=== PATIENT | male | born 1955 | race Caucasian/White ===

== ENCOUNTER 2017-05-01 11:26 | Emergency (ER) | payer MEDICARE, BC ==
--- NOTE | 2017-05-01 14:42 | EDM.PDOC ---
ED HPI GENERAL MEDICAL PROBLEM - General Chief Complaint: General Stated Complaint: BLOOD BLISTERS IN MOUTH Time Seen by Provider: 05/01/17 11:45 Source of Information: Reports: Patient, Provider History Limitations: Reports: No Limitations - History of Present Illness INITIAL COMMENTS - FREE TEXT/NARRATIVE: Patient is a 61 year old man with Chronic Lymphocytic Leukemia who was started on Imbruvica 2 days ago. He started have bleeding sores in his mouth last night and this am and he has a petechial rash on his left upper extremity this late morning also. He is not actively bleeding at this time. He feels good otherwise. Onset: Gradual Onset Date: 04/30/17 Onset Time: 20:00 Duration: Day(s): (1) Location: Reports: Generalized Quality: Reports: Same as Previous Episode Severity: Mild Improves with: Reports: Immobilization Worsens with: Reports: None Context: Reports: Other (History or CLL and chemotherapy.) Associated Symptoms: Reports: No Other Symptoms - Related Data Allergies Allergy/AdvReac Type Severity Reaction Status Date / Time Sulfa (Sulfonamide Allergy Cannot Verified 05/01/17 11:57 Antibiotics) Remember Home Meds: Home Meds Baclofen [Lioresal] 10 mg PO BEDTIME 04/14/13 [History] Ibuprofen [Motrin] 800 mg PO QID PRN 04/14/13 [History] Metoprolol Succinate 25 mg PO DAILY 04/14/13 [History] Simvastatin [Zocor] 40 mg PO BEDTIME 04/14/13 [History] Potassium Chloride 20 meq PO DAILY 08/19/16 [History] traZODone 100 mg PO BEDTIME 08/19/16 [History] Acetaminophen 1,000 mg PO Q6H 05/01/17 [History] Albuterol Sulfate [Proventil Hfa] 2 puff PO Q6H 05/01/17 [History] Ascorbic Acid 500 mg PO DAILY 05/01/17 [History] Cholecalciferol (Vitamin D3) [Vitamin D3] 1,000 unit PO DAILY 05/01/17 [History] Folic Acid 1 mg PO DAILY 05/01/17 [History] Ibrutinib [Imbruvica] 420 mg PO DAILY 05/01/17 [History] Lisinopril 20 mg PO DAILY 05/01/17 [History] Multivit-Min/FA/Lycopene/Lut [Certavite Sr-Antioxidant Tab] 1 tab PO DAILY 05/01 [History] Ondansetron [Zofran] 8 mg PO BID 05/01/17 [History] PARoxetine [Paxil] 20 mg PO DAILY 05/01/17 [History] Umeclidinium [place] [Incruse Ellipta*] 1 inh PO DAILY 05/01/17 [History] Past Medical History HEENT History: Reports: Hard of Hearing, Impaired Vision Cardiovascular History: Reports: High Cholesterol, Hypertension Other Musculoskeletal History: tailbone cyst Psychiatric History: Reports: Depression Oncologic (Cancer) History: Reports: Leukemia - Past Surgical History GI Surgical History: Reports: Appendectomy Musculoskeletal Surgical History: Reports: Shoulder Surgery, Other (See Below) Other Musculoskeletal Surgeries/Procedures:: finger surgery Social & Family History - Family History Family Medical History: Noncontributory - Tobacco Use Smoking Status *Q: Current Every Day Smoker Years of Tobacco use: 40 Packs/Tins Daily: 1 Second Hand Smoke Exposure: Yes - Caffeine Use Caffeine Use: Reports: Coffee, Energy Drinks, Soda - Alcohol Use Days Per Week of Alcohol Use: 7 Number of Drinks Per Day: 3 Total Drinks Per Week: 21 - Recreational Drug Use Recreational Drug Use: No ED ROS GENERAL - Review of Systems Review Of Systems: See Below Constitutional: Reports: No Symptoms, Decreased Appetite HEENT: Reports: Other (He has areas of prior bleeding sores that are healing.) Respiratory: Reports: No Symptoms Cardiovascular: Reports: No Symptoms Endocrine: Reports: No Symptoms GI/Abdominal: Reports: No Symptoms : Reports: No Symptoms Musculoskeletal: Reports: No Symptoms Skin: Reports: Rash (Petechial rash on left upper arm.) Neurological: Reports: No Symptoms Psychiatric: Reports: No Symptoms Hematologic/Lymphatic: Reports: No Symptoms Immunologic: Reports: No Symptoms ED EXAM, GENERAL - Physical Exam Exam: Not Obtained Exam Limited By: No Limitations General Appearance: Alert Eye Exam: Bilateral Eye: EOMI, Normal Fundi, Normal Inspection, PERRL Ears: Normal External Exam, Normal Canal, Hearing Grossly Normal, Normal TMs Ear Exam: Bilateral Ear: Auricle Normal, Canal Normal, TM normal Nose: Normal Inspection, Normal Mucosa, No Blood Throat/Mouth: Normal Inspection, Normal Lips, Normal Teeth, Normal Gums, Normal Oropharynx, Normal Voice, No Airway Compromise, Other (There are healing sores with blood in her mouth qne tongue.) Head: Atraumatic, Normocephalic Neck: Normal Inspection, Supple, Non-Tender, Full Range of Motion Respiratory/Chest: No Respiratory Distress GI/Abdominal: Normal Bowel Sounds, Soft, Non-Tender, No Organomegaly, No Distention, No Abnormal Bruit, No Mass (Male) Exam: No Hernia Extremities: Normal Inspection, Normal Range of Motion, Non-Tender, No Pedal Edema, Normal Capillary Refill, Other (Petechial rash left upper arm.) Neurological: Alert, Oriented, CN II-XII Intact, Normal Cognition, Normal Gait, Normal Reflexes, No Motor/Sensory Deficits Psychiatric: Normal Affect, Normal Mood Skin Exam: Warm, Dry, Intact, Normal Color, Rash Lymphatic: No Adenopathy () Course - Vital Signs Text/Narrative:: Uneventful ED course. He will be watched on obervation closely and he will follow up with heme-onc next week as scheduled. Oncology suggested watching him closely in observation and if any bleeding starts to quickly get him moved to [facility] if needed. Stop Imbruvica. Last Recorded V/S: Last Vital Signs Temp 36.9 C 05/01/17 11:30 Pulse 84 05/01/17 11:30 Resp 15 05/01/17 11:30 BP 162/85 H 05/01/17 11:30 Pulse Ox 96 05/01/17 11:30 - Orders/Labs/Meds Orders: Active Orders 24 hr Category Date Time Status Pelvis wo Cont [CT] Stat Exams 05/01/17 11:33 Stop Req Labs: Laboratory Tests 05/01/17 05/01/17 Range/Units 12:10 12:10 WBC 29.7 H (4.5-12.0) X10-3/uL RBC 5.07 (4.30-5.75) x10(6)uL Hgb 13.8 (11.5-15.5) g/dL Hct 42.0 (30.0-51.3) % MCV 82.9 (80-96) fL MCH 27.2 L (27.7-33.6) pg MCHC 32.8 (32.2-35.4) g/dL RDW 15.6 H (11.5-15.5) % Plt Count 21 L* (125-369) X10(3)uL MPV 10.9 H (7.4-10.4) fL Add Manual Diff Yes Neutrophils % (Manual) 26 L (46-82) % Lymphocytes % (Manual) 73 H (13-37) % Monocytes % (Manual) 1 L (4-12) % Plt Morphology Comment Sodium 141 (135-145) mmol/L Potassium 4.2 (3.5-5.3) mmol/L Chloride 105 (100-110) mmol/L Carbon Dioxide 27 (21-32) mmol/L BUN 12 (7-18) mg/dL Creatinine 0.7 (0.70-1.30) mg/dL Est Cr Clr Drug Dosing 87.32 mL/min Estimated GFR (MDRD) > 60 (>60) BUN/Creatinine Ratio 17.1 (9-20) Glucose 110 (80-116) mg/dL Calcium 9.0 (8.6-10.2) mg/dL Total Bilirubin 0.4 (0.1-1.3) mg/dL AST 13 (5-25) IU/L ALT 16 (12-36) U/L Alkaline Phosphatase 126 H (56-112) IU/L Total Protein 6.7 (6.0-8.0) g/dL Albumin 3.5 (3.2-4.6) g/dL Globulin 3.2 g/dL Albumin/Globulin Ratio 1.1 Departure - Departure Time of Disposition: 14:49 Disposition: Refer to Observation Condition: Fair Clinical Impression: Thrombocytopenia due to blood loss, 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 - Discharge Information Referrals: Vahid Oakes MD [Primary Care Provider] - - My Orders Last 24 Hours: My Active Orders 05/01/17 11:33 Pelvis wo Cont [CT] Stat - Assessment/Plan Last 24 Hours: My Active Orders 05/01/17 11:33 Pelvis wo Cont [CT] Stat
[2017-05-01] MEDS ORDERED: Sodium Chloride 0.9% 10 ML Syringe FLUSH PRN (16:42)
[2017-05-01] MEDS ORDERED: ALBUTEROL SULFATE PO SCH (17:00)
[2017-05-01] MEDS ORDERED: BACLOFEN 10 MG PO SCH (18:00)
[2017-05-01] MEDS ORDERED: UMECLIDINIUM BROMIDE PO SCH (18:00)
[2017-05-01] MEDS: ALBUTEROL SULFATE PO SCH (20:26)
[2017-05-01] MEDS ORDERED: TRAZODONE 50 MG PO SCH (21:00)
[2017-05-02] MEDS: ALBUTEROL SULFATE PO SCH (10:11)
[2017-05-02 10:16] VITALS: BP 151/74
--- NOTE | 2017-05-02 13:00 | DISCH ---
DISCHARGE DATE: 05/02/2017 HOSPITAL COURSE: Ajay Reyes is a 61-year-old male, admitted with post chemotherapy induced low platelets. Intraoral bleeding has ceased, fatigue had not increased, feeling well otherwise. Repeat CBC; white count 29,200, hemoglobin 13.0, platelets have dropped from 40 to 21 on 05/01 to 16,000. Chemotherapy-induced low platelets. PLAN: Spoke with Dr. Ross, Oncology/Hematology [facility], agrees that he is going to observe increasing bleeding symptoms or concerns, problematic return particularly to [facility] given circumstances. CBC will be ordered at [facility] for review of CBC tomorrow. /[id number] ABBY/TRACY
--- NOTE | 2017-05-03 13:55 | HP ---
ADMISSION DATE: 05/01/2017 REASON FOR VISIT: Low platelets, oral bleeding, bruising arms. HISTORY OF PRESENT ILLNESS: Ajay Reyes is a 61-year-old male, , [place] resident, who was seen at [facility]. He has a longstanding history, 9 years' duration, of CLL. Provider of record is Dr. Gregory Roberts, Oncology, [facility]. He has had some intermittent medical treatment with Rituxan over the last several years' duration. Lack of response resulted in institution this last Wednesday of Imbruvica 420 mg daily, adjusting dose upward as tolerated. First dose taken on 04/30/2017. Symptoms appeared in the mean time. Pretreatment platelets by report were "40,000." Was seen at [facility], white count stable 2,900, hemoglobin 13.8, platelets 21,000. ER doctor's record, spoke with Dr. Ross, Oncology/Hematology, [facility], recommended "overnight observation for bleeding." There has been no other bleeding, other than couple of sores in his mouth, some bruising and petechiae on upper extremities, no blood in urine, no blood in stool, feeling otherwise well. MEDICATIONS: Please see med recon list. PAST MEDICAL HISTORY: Significant for operation including appendectomy, bilateral shoulder arthroscopies, pilonidal cystectomy, transposition of the ulnar nerve, and a right thumb tendon surgery. Chronic illnesses include hypertension, mood disorder, hyperlipidemia, and of course ongoing CLL treatment. 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 Allergy to sulfa. history none. SOCIAL HISTORY: . at 53, uncertain of cause. Works in maintenance and construction. He has 3 boys, 6 grandchildren, 2 step grandchildren, 4 biological grandchildren. Continues to smoke 1-2 pack per day. No chewing tobacco. No alcohol consumption. No illicit drug use. FAMILY HISTORY: Negative for early heart disease, diabetes mellitus, or inheritable cancers. REVIEW OF SYSTEMS: CONSTITUTIONAL: Feeling well. Weight has been stable. EYES: Sees well. EARS: Difficulty hearing and deaf in the left ear. Poor hearing in the right. MOUTH AND OROPHARYNX: Intact dentition, oral bleeding. CHEST: No cough, wheeze, or congestion. CARDIOVASCULAR: No chest pain, palpitations or syncope. GI: Regular predictable stools. : Good voiding pattern. SKIN: No open sores or lesions. ENDOCRINE: No excessive thirst or urination. ALLERGY: No chronic cough, wheeze, or congestion. PSYCHIATRIC: Mood stable, on medications. ORTHOPEDICS: Generalized joint complaints. PHYSICAL EXAMINATION: VITAL SIGNS: 37, 88 is the pulse, 170/97, 20 and 97%. GENERAL: Young man, cooperative, conversant. Appears older than stated age. Funduscopic benign. Bright TMs. Clear nasal discharge. Mouth and oropharynx clear. Intraoral bleeding sites, left and right buccal mucosa. No dental bleeding. NECK: Benign. No adenopathy. CHEST: Clear in all lung burden. HEART: Regular without ectopy or murmur. BREASTS: Normal male breasts. ABDOMEN: Benign. Right lower quadrant appendectomy scar, well healed. : Normal male genitalia. RECTAL: Deferred. EXTREMITIES: Well perfused. LABORATORY STUDIES: CBC as noted above, electrolytes satisfactory. ASSESSMENT: Chemotherapy-induced low platelets, underlying chronic lymphocytic leukemia treatment. PLAN: As per request of Dr. Ross, we will watch overnight for bleeding. Intravenous line was placed, just in case, cooperative care and well being. /[id number] ABBY/TRACY CC: GREGORY ROBERTS MD, [facility]
== END 2017-05-02 11:30 | disposition home or self-care (01) ==
LOC: FB.ED 11:26 → UNDOADMOB 15:23 → FB.MS 15:23 → UNDODISOB 05-02 11:30 → FB.ED 05-02 11:30
DX: D69.59 Other secondary thrombocytopenia (principal); I10 Essential (primary) hypertension; E78.5 Hyperlipidemia, unspecified; Z88.2 Allergy status to sulfonamides; F17.210 Nicotine dependence, cigarettes, uncomplicated; Z79.899 Other long term (current) drug therapy
CPT/HCPCS: 36415; 80053; 85025; 85027; 85610; 99283; 99284; A9270; J7050

== ENCOUNTER 2017-08-25 12:56 | Emergency (ER) | payer MEDICARE, BC ==
--- NOTE | 2017-08-25 13:58 | EDM.PDOC ---
ED HPI GENERAL MEDICAL PROBLEM - General Chief Complaint: Respiratory Problem Stated Complaint: COPD Time Seen by Provider: 08/25/17 13:30 Source of Information: Reports: Patient History Limitations: Reports: No Limitations - History of Present Illness INITIAL COMMENTS - FREE TEXT/NARRATIVE: c/o low BP pt with BP 84/54 at clinic, pt sent here for BP recheck prior to be admitted to [facility] by Dr Bernstein pt did not want to be admitted here pt with h/o COPD, last hospitalization several yrs ago dx with pneumonia 6w ago, begun on home O2 yesterday and tx with prednisone 20 mg daily and a 2nd course of antbx pt went to clinic today and saw Dr Luz who made arrangements for pt to be transferred to [facility], Dr Bernstein accepted pt although requested pt to come to closed ED to stable BP first pt with BP 110/62 upon leaving clinic and is 112/85 with PO 95-98% on 2 l/min CxR shows old fibrosis and no new infiltrate as per Dr Luz todays labs show BUN/creat 9/0.91, glu 131, chloride 95, Na 132, CMP otherwise neg WBC 9.5, hgb 13.1, plt 47 still smokes 2 ppd, no nebs at home, has alb HFA and Ellipta HFA has CLL x 10y, gets rifuximab q2y, last month completed weekly infusions x 8w had appointment with pulmonary tomorrow lives alone, not working no h/o CV disease IVF bolus not required, additional labs not done here Treatments TRANSFORMATION SPECIALIST: Reports: Breathing Treatments, Oxygen - Related Data Allergies Allergy/AdvReac Type Severity Reaction Status Date / Time Sulfa (Sulfonamide Allergy Cannot Verified 08/25/17 13:10 Antibiotics) Remember Home Meds: Home Meds Baclofen [Lioresal] 10 mg PO DAILY 04/14/13 [History] Metoprolol Succinate 25 mg PO DAILY 04/14/13 [History] Simvastatin [Zocor] 40 mg PO DAILY 04/14/13 [History] Potassium Chloride 20 meq PO DAILY 08/19/16 [History] Acetaminophen 1,000 mg PO Q6H 05/01/17 [History] Albuterol Sulfate [Proventil Hfa] 2 puff PO Q6H 05/01/17 [History] Ascorbic Acid 500 mg PO DAILY 05/01/17 [History] Cholecalciferol (Vitamin D3) [Vitamin D3] 1,000 unit PO DAILY 05/01/17 [History] Folic Acid 1 mg PO DAILY 05/01/17 [History] Lisinopril 20 mg PO DAILY 05/01/17 [History] Multivit-Min/FA/Lycopene/Lut [Certavite Sr-Antioxidant Tab] 1 tab PO DAILY 05/01 [History] PARoxetine [Paxil] 20 mg PO DAILY 05/01/17 [History] Umeclidinium [place] [Incruse Ellipta*] 1 inh PO DAILY 05/01/17 [History] Amoxicillin/Clavulanate K [Augmentin 500-125 MG] 2 tab PO BID 08/25/17 [History] predniSONE 20 mg DAILY 08/25/17 [History] Past Medical History HEENT History: Reports: Hard of Hearing, Impaired Vision Cardiovascular History: Reports: High Cholesterol, Hypertension Respiratory History: Reports: COPD, Pneumonia, Recurrent, Sleep Apnea Other Respiratory History: Is on O2 @ 2L/NC, just started last week. Genitourinary History: Reports: Urinary Incontinence Musculoskeletal History: Reports: Fracture Other Musculoskeletal History: tailbone cyst, hx fx R ankle, Psychiatric History: Reports: Addiction, Depression, Other (See Below) Other Psychiatric History: ETOH abuse, tx for ETOH abuse Endocrine/Metabolic History: Reports: Obesity/BMI 30+ Oncologic (Cancer) History: Reports: Leukemia Other Oncologic History: CLL - Infectious Disease History Infectious Disease History: Reports: Chicken Pox, Measles, Mumps, Other (See Below) Other Infectious Disease History: west nile - Past Surgical History Head Surgeries/Procedures: Reports: None HEENT Surgical History: Reports: None Respiratory Surgical History: Reports: None GI Surgical History: Reports: Appendectomy, Colonoscopy Musculoskeletal Surgical History: Reports: Shoulder Surgery, Other (See Below) Other Musculoskeletal Surgeries/Procedures:: finger surgery L hand, L thumb surgery, bilat shoulder surgery, surgery for pyelonidal cyst Social & Family History - Family History Family Medical History: Noncontributory - Tobacco Use Smoking Status *Q: Current Every Day Smoker Years of Tobacco use: 45 Packs/Tins Daily: 2 Second Hand Smoke Exposure: Yes - Caffeine Use Caffeine Use: Reports: Coffee, Soda - Alcohol Use Days Per Week of Alcohol Use: 7 Number of Drinks Per Day: 3 Total Drinks Per Week: 21 - Recreational Drug Use Recreational Drug Use: No ED ROS GENERAL - Review of Systems Review Of Systems: See Below Constitutional: Reports: No Symptoms HEENT: Reports: No Symptoms Respiratory: Reports: Shortness of Breath, Wheezing Cardiovascular: Reports: No Symptoms Endocrine: Reports: No Symptoms GI/Abdominal: Reports: No Symptoms : Reports: No Symptoms Musculoskeletal: Reports: No Symptoms Skin: Reports: No Symptoms Neurological: Reports: No Symptoms Psychiatric: Reports: No Symptoms Hematologic/Lymphatic: Reports: No Symptoms Immunologic: Reports: No Symptoms ED EXAM, GENERAL - Physical Exam Exam: See Below Exam Limited By: No Limitations General Appearance: Alert, WD/WN, Mild Distress Ears: Normal External Exam Nose: Normal Inspection, Normal Mucosa, No Blood Throat/Mouth: Normal Inspection, Normal Lips, Normal Voice, No Airway Compromise Head: Atraumatic, Normocephalic Neck: Normal Inspection, Supple, Non-Tender, Full Range of Motion Respiratory/Chest: Other (diffuse I/E wheezes, inc'd exp phase, using accessory muscles, no purse lip, no retractions, mild to moderate dyspnea, speaking 8- word sentences, given Duoneb at clinic, declined an additional Duoneb here) Cardiovascular: Regular Rate, Rhythm, No Edema, No Gallop, No Murmur, No Rub Back Exam: Normal Inspection, Full Range of Motion, NT Extremities: Normal Inspection, Normal Range of Motion, Non-Tender, No Pedal Edema Neurological: Alert, Oriented, CN II-XII Intact, Normal Cognition, No Motor/ Sensory Deficits Psychiatric: Normal Affect, Normal Mood Skin Exam: Warm, Dry, Intact, Normal Color, No Rash Lymphatic: No Adenopathy Course - Vital Signs Last Recorded V/S: Last Vital Signs Temp 36.6 C 08/25/17 12:56 Pulse 92 08/25/17 12:56 Resp 24 H 08/25/17 13:30 BP 112/85 08/25/17 13:30 Pulse Ox 94 L 08/25/17 13:30 Departure - Departure Time of Disposition: 14:02 Disposition: DC/Tfer to Acute Hospital 02 Condition: Fair Clinical Impression: COPD exacerbation, Hypoxia, Immunosuppressed status, Current smoker, Hypotension - Discharge Information Referrals: Vahid Oakes MD [Primary Care Provider] -
[2017-08-25 17:30] VITALS: BP 101/70
[2017-08-25] MEDS ORDERED: Sodium Chloride 0.9% 10 ML Syringe FLUSH PRN (17:30)
== END 2017-08-25 15:24 ==
LOC: FB.ED 12:56
DX: J44.1 Chronic obstructive pulmonary disease with (acute) exacerbation (principal); I95.9 Hypotension, unspecified; R09.02 Hypoxemia; E78.00 Pure hypercholesterolemia, unspecified; E66.9 Obesity, unspecified; F17.210 Nicotine dependence, cigarettes, uncomplicated; Z79.899 Other long term (current) drug therapy; Z88.2 Allergy status to sulfonamides
CPT/HCPCS: 99285; J7050

== ENCOUNTER 2018-12-12 12:34 | Inpatient (IN) | payer MEDICARE, BC ==
[2018-12-12] MEDS ORDERED: Albuterol 8 GM Inhaler INH PRN (15:15)
[2018-12-12] MEDS: Sodium Chloride 0.9% 1,000 ML IV SCH ×2 (15:55→23:44)
[2018-12-12] MEDS ORDERED: Acetaminophen 500 MG Tab PO PRN (16:48)
[2018-12-12] MEDS ORDERED: traZODone 50 MG Tab PO SCH (21:00)
[2018-12-12] MEDS ORDERED: Amoxicillin/Clavulanate K 500-125 MG Tab PO SCH (21:00)
[2018-12-12] MEDS ORDERED: Potassium Chloride 20 MEQ Tab.ER PO SCH (21:00)
[2018-12-12] MEDS: Formoterol/Mometasone 200-5 MCG 8.8 GM Inhaler IH SCH (22:07)
--- NOTE | 2018-12-12 22:58 | HP ---
ADMISSION DATE: 12/12/2018 INFORMANT: History is from the patient and his [facility] record. The patient is only a fair historian. CHIEF COMPLAINT: Weakness, not feeling right, and low sodium. HISTORY OF PRESENT ILLNESS: Mr. Reyes is a 63-year-old man from [place], with a history of CLL; ITP; COPD; histoplasmosis; and a history of alcoholism, now dry for the past 3 years. 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 The patient went into the clinic to see Dr. Oakes today because of weakness and just generally not feeling well. Evaluation showed his general weakness, and laboratory testing came back with a white count of 26,900 consistent with a CLL and a sodium down to 123. For this reason, he was sent to [facility] for admission and correction of his hyponatremia and further investigation. The patient denies any specific symptoms, and specifically he relates he has not had nausea, vomiting, or abdominal pain. He does have chronic watery stools 3 to 4 times per day that has not changed. He was recently seen by Dr. Ledbetter and Infectious Disease [facility] and recommended to restart itraconazole for his histoplasmosis. He has not received this in the mail yet from the [place], so this is not started. 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 He has had depression, hyperlipidemia, and GERD. PAST SURGICAL HISTORY: He is status post appendectomy, colonoscopy and bronchial biopsies, pilonidal cystectomy, bilateral shoulder dislocation surgeries, left ulnar nerve decompression. MEDICATIONS: 1. Metoprolol 25 mg daily. 2. Lisinopril 20 mg daily. 3. Folic acid 1 mg daily. 4. Augmentin 500/125, 1 tab daily. 5. Albuterol HFA 2 puffs q.i.d. p.r.n. 6. Tylenol 500 mg 2 tabs t.i.d. p.r.n. 7. Ocuvite 1 daily. 8. Vitamin D3 1000 units daily. 9. Baclofen 10 mg b.i.d. p.r.n. muscle spasms. 10.Vitamin C 500 mg daily. 11.Incruse Ellipta 1 puff daily. 12.Simvastatin 40 mg daily. 13.Prednisone 20 mg daily. 14.Potassium 20 mEq daily. 15.Paroxetine 20 mg daily. ALLERGIES: Sulfa, reaction not listed. HABITS: A pack and a half cigarette smoker per day, started when he was in grade school, heavy alcohol user in the past. He says he quit in 2016. FAMILY AND SOCIAL HISTORY: The patient grew up in the [facility]. He and his moved down to [place] for her nursing job. She subsequently , and he is continued to live in [place]. REVIEW OF SYSTEMS: GENERAL: No seizure, syncope, or recent significant weight change. SKIN: Negative for new rash. HEENT: No recent changes in hearing or vision. He is quite hard of hearing, however. No sore throat or URI. No cough or purulent sputum. LUNGS: No chest pain or palpitations. ABDOMEN: No abdominal pain. He has chronic watery stools. No joint inflammation, swelling, or skin rash. PHYSICAL EXAMINATION: GENERAL: He is alert, but quite hard of hearing. VITAL SIGNS: Blood pressure is low at 72/44 in clinic, pulse 76, and weight 177 for a BMI of 26. SKIN: Clear without rash. HEENT: Shows TMs to be clear. He has significant hearing loss. Pupils are equal and reactive with cataracts visible bilaterally. Oropharynx clear. LUNGS: Distant breath sounds. No focal consolidation. HEART: Regular without murmur or gallop heard. ABDOMEN: Normal bowel sounds. Soft and nontender. No masses and no organomegaly. EXTREMITIES: No edema. Dorsalis pedis and posterior tibial pulses are palpable. Right shows significant weakness to hip flexion, knee extension, and right foot dorsiflexion. He relates all of this due to his old West Nile. ASSESSMENT: A 63-year-old man with; 1. Hyponatremia and relative hypotension with asthenia. 2. Idiopathic thrombocytopenic purpura, on long long-term prednisone. 3. CLL, stable, on no medication. 4. Histoplasmosis, now to begin itraconazole again after previous 9-month treatment. 5. Chronic obstructive pulmonary disease with continued cigarette smoking. 6. History of alcoholism dry for 3 years. 7. Hyperlipidemia. 8. Depression. 9. Type 2 diabetes. 10.Chronic low back pain. PLAN: He is admitted to the hospital. We will replace his sodium with normal saline and expect to improve his hypotension. We will continue his outpatient medication. Plan for a 48- to 72-hour hospital stay. We will also provide palliative care measures for his underlying CLL, osteoarthritis, low back pain, etc. /[id number] MERARI/TRACY
[2018-12-13] MEDS ORDERED: Pantoprazole 40 MG Tab.CR PO SCH (06:00)
[2018-12-13 07:53] VITALS: BP 105/63; PULSE 73
--- NOTE | 2018-12-13 08:40 | PN ---
DATE SEEN: 12/13/2018 HISTORY: Mr. Reyes is a 63-year-old resident of [place] with a history of CLL; ITP, on prednisone; histoplasmosis; chronic obstructive pulmonary disease; type 2 diabetes; and previous alcoholism, now dry for 3 years. He was admitted because of weakness, low blood pressure of 70/50 in the clinic, and hyponatremia. He was placed on IV normal saline since admission. He slept interrupted by several episodes to urinate, but otherwise comfortable. PHYSICAL EXAMINATION: GENERAL: He is alert and oriented. He is a fair historian. VITAL SIGNS: Blood pressure 112/71, pulse 74 and regular, respirations 16, O2 saturation 97% on room air, temperature 97.6, weight 179 pounds, this is up 3.5 pounds from admission. SKIN: Shows no rash or trauma. MOUTH: Dry. LUNGS: Clear. HEART: Regular. ABDOMEN: Normal bowel sounds. Soft. EXTREMITIES: No edema. LABORATORY DATA: White count 23,200, hemoglobin 11.9. Sodium 128, creatinine 0.9. Magnesium 1.3. ASSESSMENT: 1. Hyponatremia, improving. 2. Hypotension, improving. 3. Hypomagnesemia. 4. Chronic lymphocytic leukemia. 5. Idiopathic thrombocytopenic purpura. 6. Histoplasmosis. 7. Chronic obstructive pulmonary disease with continued smoking. PLAN: We will saline lock his IV, start him on oral sodium chloride tablet replacement. We will discontinue his Paxil to help prevent recurrence of hyponatremia. If he continues to do well and is stable when up, may be discharged within 24 hours. /[id number] MERARI/TRACY
[2018-12-13] MEDS ORDERED: Sodium Chloride 1 GM Tab PO SCH (09:00)
[2018-12-13] MEDS ORDERED: Lisinopril 20 MG Tab PO SCH (09:00)
[2018-12-13] MEDS ORDERED: Potassium Chloride 20 MEQ Tab.ER PO SCH (09:00)
[2018-12-13] MEDS ORDERED: predniSONE 5 MG Tab PO SCH (09:00)
[2018-12-13] MEDS ORDERED: Magnesium Oxide 400 MG Tab PO SCH (09:00)
[2018-12-13] MEDS ORDERED: Folic Acid 1 MG Tab PO SCH (09:00)
[2018-12-13] MEDS ORDERED: PARoxetine 20 MG Tab PO SCH (09:00)
[2018-12-13] MEDS ORDERED: Metoprolol Succinate 25 MG Tab.ER PO SCH (09:00)
[2018-12-13] MEDS: Formoterol/Mometasone 200-5 MCG 8.8 GM Inhaler IH SCH (09:10)
[2018-12-13] MEDS ORDERED: Tiotropium Inhaler 18 MCG Inhalation Powder Cap Kit of 5 INH SCH (16:00)
--- NOTE | 2018-12-13 16:48 | DISCH ---
DISCHARGE DATE: 12/13/2018 HISTORY: Ajay is a 63-year-old man who was admitted from Dr. Oakes's clinic because of hypotension with blood pressure of 70s/50 and hyponatremia to 123. He reported just feeling generally weak with malaise and no pain, etc. Inpatient evaluation revealed no sign of infection. Other diagnoses included CLL, ITP, history of histoplasmosis, chronic essential hypertension, depression, COPD with continued smoking, hyperlipidemia, and the past history of alcoholism, now dry for 3 years. He was treated with IV normal saline and then switched to oral saline sodium chloride tablets. His Paxil was discontinued because of the hyponatremia. He is discharged in improved condition on the following medications: 1. Trazodone 50 mg at bedtime. 2. Spiriva 1 puff daily. 3. Sodium chloride one tablet daily for 2 weeks. 4. Simvastatin 20 mg daily. 5. Prednisone 5 mg daily. 6. Vitamin D3 2000 units daily. 7. Symbicort 160 two puffs b.i.d. 8. Potassium 10 mEq daily. 9. Folic acid 1 mg daily. 10.Albuterol HFA two puffs p.r.n. 11.Tylenol p.r.n. He is asked to follow up with Dr. Oakes in one week in the office and call should there be questions or problems prior to that. /[id number] MERARI/TRACY
[2018-12-13] MEDS ORDERED: Simvastatin 20 MG Tab PO SCH (21:00)
== END 2018-12-13 15:10 | disposition home or self-care (01) | DRG 641 ==
LOC: FB.MS 13:10
PROVIDERS: ADMIT Family Medicine; ATTEND Family Medicine
DX: E87.1 Hypo-osmolality and hyponatremia (principal); C91.10 Chronic lymphocytic leukemia of B-cell type not having achieved remission; D69.3 Immune thrombocytopenic purpura; R53.1 Weakness; I95.9 Hypotension, unspecified; E83.42 Hypomagnesemia; B39.9 Histoplasmosis, unspecified; J44.9 Chronic obstructive pulmonary disease, unspecified; F17.210 Nicotine dependence, cigarettes, uncomplicated; F10.21 Alcohol dependence, in remission; Z86.61 Personal history of infections of the central nervous system; K52.9 Noninfective gastroenteritis and colitis, unspecified; Z87.01 Personal history of pneumonia (recurrent); E11.319 Type 2 diabetes mellitus with unspecified diabetic retinopathy without macular edema; I10 Essential (primary) hypertension; K21.9 Gastro-esophageal reflux disease without esophagitis; F32.9 Major depressive disorder, single episode, unspecified; E78.5 Hyperlipidemia, unspecified; G89.29 Other chronic pain; M54.9 Dorsalgia, unspecified; Z88.2 Allergy status to sulfonamides; Z79.84 Long term (current) use of oral hypoglycemic drugs; Z79.52 Long term (current) use of systemic steroids; Z79.899 Other long term (current) drug therapy
CPT/HCPCS: 36415; 80053; 81003; 82962; 83735; 85025; A9270-GY; J7030

== ENCOUNTER 2018-12-27 23:08 | Emergency (ER) | payer MEDICARE, BC ==
--- NOTE | 2018-12-27 23:35 | EDM.PDOC ---
ED HPI GENERAL MEDICAL PROBLEM - General Chief Complaint: General Stated Complaint: malaise Time Seen by Provider: 12/27/18 23:20 Source of Information: Reports: Patient, Family, Old Records History Limitations: Reports: No Limitations - History of Present Illness INITIAL COMMENTS - FREE TEXT/NARRATIVE: Ajay comes into [facility] ED with sxs of malaise over the past week, swelling in the feet, some loss of appetite, and anxious over decline in health. He has a known PMH of CLL, currently on Prednisone 40 mg daily from 60 mg daily last week per oncologist. His vision has been blurry, known cataracts, but no polyuria. His nose and mouth feel dry, however. His med list is reviewed. He is a known Type II DM off metformin because of diarrhea and wt loss. - Related Data Allergies Allergy/AdvReac Type Severity Reaction Status Date / Time Sulfa (Sulfonamide Allergy Cannot Verified 12/12/18 16:05 Antibiotics) Remember Home Meds: Home Meds Acetaminophen 1,000 mg PO Q6H PRN 05/01/17 [History] Cholecalciferol (Vitamin D3) [Vitamin D3] 2,000 unit PO DAILY 05/01/17 [History] Folic Acid 1 mg PO DAILY 05/01/17 [History] Budesonide/Formoterol [Symbicort 160-4.5 MCG] 2 puff IH BID 12/12/18 [History] Simvastatin 20 mg PO DAILY 12/12/18 [History] Tiotropium [Spiriva HandiHaler] 18 mcg IH DAILY@1600 12/12/18 [History] predniSONE [Prednisone] 40 mg PO DAILY 12/12/18 [History] Potassium Chloride 10 meq PO DAILY #30 cap.er 12/13/18 [Rx] Sodium Chloride 1 gm PO DAILY #15 tablet 12/13/18 [Rx] Itraconazole 100 mg PO TID 12/28/18 [History] Melatonin 1 mg PO BEDTIME 12/28/18 [History] Past Medical History HEENT History: Reports: Hard of Hearing, Impaired Vision Cardiovascular History: Reports: High Cholesterol, Hypertension Respiratory History: Reports: COPD, Pneumonia, Recurrent, Sleep Apnea Other Respiratory History: Is on O2 @ 2L/NC, just started last week. Genitourinary History: Reports: Urinary Incontinence Musculoskeletal History: Reports: Fracture Other Musculoskeletal History: tailbone cyst, hx fx R ankle, Psychiatric History: Reports: Addiction, Depression, Other (See Below) Other Psychiatric History: ETOH abuse, tx for ETOH abuse Endocrine/Metabolic History: Reports: Obesity/BMI 30+ Oncologic (Cancer) History: Reports: Leukemia Other Oncologic History: CLL - Infectious Disease History Infectious Disease History: Reports: Other (See Below) Other Infectious Disease History: [place] disease - Past Surgical History Head Surgeries/Procedures: Reports: None HEENT Surgical History: Reports: None Respiratory Surgical History: Reports: None GI Surgical History: Reports: Appendectomy, Colonoscopy Musculoskeletal Surgical History: Reports: Shoulder Surgery, Other (See Below) Other Musculoskeletal Surgeries/Procedures:: finger surgery L hand, L thumb surgery, bilat shoulder surgery, surgery for pyelonidal cyst Social & Family History - Family History Family Medical History: Noncontributory - Caffeine Use Caffeine Use: Reports: Coffee Caffeine Use Comment: 4 cups per day for coffee ED ROS GENERAL - Review of Systems Review Of Systems: See Below Constitutional: Reports: Malaise, Weakness, Fatigue, Decreased Appetite, Weight Loss HEENT: Reports: Other (dry mouth and nose) Respiratory: Reports: No Symptoms Cardiovascular: Reports: Edema Endocrine: Reports: Fatigue GI/Abdominal: Reports: Decreased Appetite : Reports: No Symptoms Musculoskeletal: Reports: No Symptoms Skin: Reports: Bruising, Other (edema of feet) Neurological: Reports: Pre-Existing Deficit Psychiatric: Reports: Anxiety, Other (Hx ETOHism) Hematologic/Lymphatic: Reports: Anemia, Easy Bruising Immunologic: Reports: No Symptoms ED EXAM, GENERAL - Physical Exam Exam: See Below Exam Limited By: No Limitations General Appearance: Alert, WD/WN, No Apparent Distress, Anxious Eye Exam: Bilateral Eye: EOMI, Normal Inspection, PERRL Ears: Normal External Exam Nose: Other (rhinitis sicca) Throat/Mouth: Normal Voice, No Airway Compromise, Other (xerostomia) Head: Normocephalic Neck: Normal Inspection Respiratory/Chest: Decreased Breath Sounds, Prolonged Expiration Cardiovascular: Regular Rate, Rhythm, No Murmur GI/Abdominal: Normal Bowel Sounds, Soft, Non-Tender, No Organomegaly, No Distention, No Mass (Male) Exam: Deferred Rectal (Males) Exam: Deferred Extremities: Normal Inspection Neurological: Alert, Oriented, CN II-XII Intact Psychiatric: Normal Affect, Anxious Skin Exam: Warm, Dry, Ecchymosis, Other (edema) Lymphatic: No Adenopathy Course - Vital Signs Text/Narrative:: Screening metabolic lab results were reviewed, noting K 3.3, Na 139, nonFBS 137 mg%. The CBC and UA were baseline. Edema of feet likely secondary to Prednisone. Last Recorded V/S: Last Vital Signs Temp 36.5 C 12/27/18 23:08 Pulse 78 12/27/18 23:08 Resp 14 12/27/18 23:08 BP 157/82 H 12/27/18 23:08 Pulse Ox 99 12/27/18 23:08 - Orders/Labs/Meds Orders: Active Orders 24 hr Category Date Time Status Blood Glucose Check, Bedside [RC] ONETIME Care 12/27/18 23:30 Active Labs: Laboratory Tests 12/27/18 12/27/18 12/28/18 Range/Units 23:40 23:40 00:14 WBC 31.8 H* (4.5-12.0) X10-3/uL RBC 3.98 L (4.30-5.75) x10(6)uL Hgb 12.2 L (13.5-17.8) g/dL Hct 36.2 (30.0-51.3) % MCV 91.0 (80-96) fL MCH 30.8 (27.7-33.6) pg MCHC 33.8 (32.2-35.4) g/dL RDW 15.4 (11.5-15.5) % Plt Count 69 L (125-369) X10(3)uL MPV 11.0 H (7.4-10.4) fL Add Manual Diff Yes Neutrophils % (Manual) 30 L (46-82) % Lymphocytes % (Manual) 64 H (13-37) % Monocytes % (Manual) 6 (4-12) % Sodium 139 D (135-145) mmol/L Potassium 3.3 L (3.5-5.3) mmol/L Chloride 104 D (100-110) mmol/L Carbon Dioxide 28 (21-32) mmol/L BUN 15 (7-18) mg/dL Creatinine 0.8 (0.70-1.30) mg/dL Est Cr Clr Drug Dosing TNP Estimated GFR (MDRD) > 60 (>60) BUN/Creatinine Ratio 18.8 (9-20) Glucose 137 H (80-116) mg/dL Calcium 8.6 (8.6-10.2) mg/dL Total Bilirubin 0.5 (0.1-1.3) mg/dL AST 10 (5-25) IU/L ALT 22 D (12-36) U/L Alkaline Phosphatase 79 (56-112) IU/L Total Protein 6.1 (6.0-8.0) g/dL Albumin 3.5 (3.2-4.6) g/dL Globulin 2.6 g/dL Albumin/Globulin Ratio 1.4 Urine Color Yellow (YELLOW) Urine Appearance Clear (CLEAR) Urine pH 7.0 H (5.0-6.5) Ur Specific [place] 1.015 (1.010-1.025) Urine Protein Negative (NEGATIVE) mg/dL Urine Glucose (UA) 100 H (NORMAL) mg/dL Urine Ketones Negative (NEGATIVE) mg/dL Urine Occult Blood Negative (NEGATIVE) Urine Nitrite Negative (NEGATIVE) Urine Bilirubin Negative (NEGATIVE) Urine Urobilinogen Normal (NEGATIVE) mg/dL Ur Leukocyte Esterase Negative (NEGATIVE) Urine RBC 0-5 (0-5) Urine WBC 0-5 (0-5) Ur Squamous Epith Cells Rare (NS,R,O) Urine Bacteria Few H (NS) Departure - Departure Time of Disposition: 01:00 Disposition: Home, Self-Care 01 Condition: Fair Clinical Impression: 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 - Discharge Information *PRESCRIPTION DRUG MONITORING PROGRAM REVIEWED*: Not Applicable *COPY OF PRESCRIPTION DRUG MONITORING REPORT IN PATIENT JOSSY: Not Applicable Instructions: Hypokalemia Referrals: Vahid Oakes MD [Primary Care Provider] - Forms: ED Department Discharge Care Plan Goals: Chronic leukemia. Potassium was slightly low. Please Follow up with your oncologist. - Problem List & Annotations (1) 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 SNOMED Code(s): 27021229, 01996685 Code(s): C91.Z2 - OTHER LYMPHOID LEUKEMIA, IN RELAPSE Status: Acute Current Visit: Yes Annotation/Comment:: I advised Ajay to continue current therapy as outlined by oncologist. He may increase the K 10 meq to bid. - Problem List Review Problem List Initiated/Reviewed/Updated: Yes - My Orders Last 24 Hours: My Active Orders 12/27/18 23:30 Blood Glucose Check, Bedside [RC] ONETIME - Assessment/Plan Last 24 Hours: My Active Orders 12/27/18 23:30 Blood Glucose Check, Bedside [RC] ONETIME Plan: Follow up with Oncology next week as prior arranged.
[2018-12-28 00:01] VITALS: BP 157/82; PULSE 78
== END 2018-12-28 01:05 | disposition home or self-care (01) ==
LOC: FB.ED 23:08
DX: C91.12 Chronic lymphocytic leukemia of B-cell type in relapse (principal); I10 Essential (primary) hypertension; J44.9 Chronic obstructive pulmonary disease, unspecified; E78.00 Pure hypercholesterolemia, unspecified; E66.9 Obesity, unspecified; Z88.2 Allergy status to sulfonamides; Z79.51 Long term (current) use of inhaled steroids; Z79.899 Other long term (current) drug therapy
CPT/HCPCS: 36415; 80053; 81001; 82962; 85025; 99283; 99284

== ENCOUNTER 2019-03-27 16:17 | Inpatient (IN) | payer MEDICARE, BC ==
--- NOTE | 2019-03-27 17:10 | EDM.PDOC ---
ED HPI GENERAL MEDICAL PROBLEM - General Stated Complaint: CHEST PAINS ON RIGHT SIDE Time Seen by Provider: 03/27/19 17:09 Source of Information: Reports: Patient History Limitations: Reports: No Limitations - History of Present Illness INITIAL COMMENTS - FREE TEXT/NARRATIVE: 63-year-old male who reports beginning at approximately 11 AM today he began have right-sided chest pain and some shortness of breath associated with this. It is a dull pain and seems to have sharp pains associated with it with movement of his arm but no change with breathing or with cough. In fact, he tells me he has no cough. He has had no fevers or chills. He rates the pain as a 4/10. It does not radiate. No nausea or vomiting associated with this. He does feel somewhat weak and some dizziness. He reports that he has been eating and drinking normally. He also reports that he has been taking his medications as directed. No trauma. He states that he felt well yesterday and there were no antecedent symptoms. There are no other associated signs or symptoms. There are no other modifying factors. Onset: Today (11 AM) Duration: Constant Location: Reports: Chest (Right-sided) Quality: Reports: Dull (With some sharp spikes) Severity: Moderate Improves with: Reports: None Worsens with: Reports: Movement (Possibly with movement.) Context: Reports: Other (As above) Associated Symptoms: Reports: Chest Pain, Shortness of Breath, Weakness Treatments [employer]: Reports: Other (see below) (Nothing) - Related Data Allergies Allergy/AdvReac Type Severity Reaction Status Date / Time Sulfa (Sulfonamide Allergy Cannot Verified 12/12/18 16:05 Antibiotics) Remember Home Meds: Home Meds Acetaminophen 1,000 mg PO Q6H PRN 05/01/17 [History] Cholecalciferol (Vitamin D3) [Vitamin D3] 2,000 unit PO DAILY 05/01/17 [History] Folic Acid 1 mg PO DAILY 05/01/17 [History] Budesonide/Formoterol [Symbicort 160-4.5 MCG] 2 puff IH BID 12/12/18 [History] Simvastatin 20 mg PO DAILY 12/12/18 [History] Tiotropium [Spiriva HandiHaler] 18 mcg IH DAILY@1600 12/12/18 [History] Baclofen 10 mg PO BEDTIME 03/27/19 [History] Finasteride 5 mg PO DAILY 03/27/19 [History] Ketorolac Tromethamine 5 ml OP ASDIRECTED 03/27/19 [History] Lisinopril 10 mg PO DAILY 03/27/19 [History] Magnesium Chloride [Mag-64] 64 mg PO BID 03/27/19 [History] Metoclopramide HCl [Reglan] 10 mg PO TID PRN 03/27/19 [History] Oxymetazoline HCl [Nasal [place]] 30 ml NS ASDIRECTED 03/27/19 [History] Polymyxin B Sulf/Trimethoprim [Polymyxin B-Tmp Eye Drops] 10 ml OP ASDIRECTED [History] Potassium Chloride 10 meq PO BID 03/27/19 [History] Tamsulosin [Tamsulosin 24 Hr] 0.4 mg PO DAILY 03/27/19 [History] buPROPion HCl [Bupropion Xl] 150 mg PO DAILY 03/27/19 [History] hydroCHLOROthiazide [Hydrochlorothiazide] 25 mg PO DAILY 03/27/19 [History] prednisoLONE Acetate [Prednisolone Acetate] 5 ml OP ASDIRECTED 03/27/19 [History ] Past Medical History HEENT History: Reports: Hard of Hearing, Impaired Vision Cardiovascular History: Reports: High Cholesterol, Hypertension Respiratory History: Reports: COPD, Pneumonia, Recurrent, Sleep Apnea Genitourinary History: Reports: BPH, Urinary Incontinence Musculoskeletal History: Reports: Fracture Other Musculoskeletal History: hx fx R ankle, Psychiatric History: Reports: Addiction, Depression, Other (See Below) Other Psychiatric History: ETOH abuse, tx for ETOH abuse Endocrine/Metabolic History: Reports: Obesity/BMI 30+ Oncologic (Cancer) History: Reports: Leukemia Other Oncologic History: CLL - Infectious Disease History Infectious Disease History: Reports: Other (See Below) Other Infectious Disease History: [place] disease - Past Surgical History GI Surgical History: Reports: Appendectomy, Colonoscopy Musculoskeletal Surgical History: Reports: Shoulder Surgery, Other (See Below) Other Musculoskeletal Surgeries/Procedures:: finger surgery L hand, L thumb surgery, bilat shoulder surgery, surgery for pilonidal cyst Social & Family History - Tobacco Use Smoking Status *Q: Current Every Day Smoker - Caffeine Use Caffeine Use: Reports: Coffee Caffeine Use Comment: 4 cups per day for coffee - Alcohol Use Alcohol Use History: Yes Alcohol Use Comment: Quit 3 years ago. - Living Situation & Occupation Occupation: Disabled Social History Comment: His son is here with him. ED ROS GENERAL - Review of Systems Review Of Systems: See Below Constitutional: Reports: Weakness (Generalized) HEENT: Reports: No Symptoms Respiratory: Reports: Shortness of Breath Cardiovascular: Reports: Chest Pain (Right-sided) GI/Abdominal: Reports: No Symptoms : Reports: No Symptoms Musculoskeletal: Reports: No Symptoms Skin: Reports: No Symptoms Neurological: Reports: Dizziness Hematologic/Lymphatic: Reports: No Symptoms Immunologic: Reports: No Symptoms ED EXAM, GENERAL - Physical Exam Exam: See Below Exam Limited By: No Limitations General Appearance: Alert, WD/WN, No Apparent Distress Eye Exam: Bilateral Eye: EOMI, Normal Inspection Ears: Normal External Exam, Hearing Grossly Normal Ear Exam: Bilateral Ear: Auricle Normal Nose: Normal Inspection, Normal Mucosa, No Blood Throat/Mouth: Normal Inspection, Normal Oropharynx, Normal Voice, No Airway Compromise Head: Atraumatic, Normocephalic Neck: Normal Inspection, Supple, Non-Tender, Full Range of Motion Respiratory/Chest: No Respiratory Distress, Lungs Clear, Normal Breath Sounds, No Accessory Muscle Use, Chest Non-Tender Cardiovascular: Normal Peripheral Pulses, Regular Rate, Rhythm, No Edema, No Murmur Peripheral Pulses: 2+: Radial (L), Radial (R), Dorsalis Pedis (L), Dorsalis Pedis (R) GI/Abdominal: Normal Bowel Sounds, Soft, Non-Tender, No Mass Back Exam: Normal Inspection Extremities: Normal Inspection, Normal Range of Motion, Non-Tender, No Pedal Edema, Normal Capillary Refill Neurological: Alert, Oriented, CN II-XII Intact, No Motor/Sensory Deficits Psychiatric: Normal Affect Skin Exam: Warm, Dry, Intact, Normal Color, No Rash EKG INTERPRETATION EKG Date: 03/27/19 Time: 16:28 Rhythm: Other (Sinus tachycardia) Rate (Beats/Min): 105 [place]: Normal P-Wave: Present QRS: Normal ST-T: Other (Nonspecific ST-T changes) QT: Normal Comparison: NA - No Prior EKG (No prior EKGs and our system for comparison.) Course - Vital Signs Last Recorded V/S: Last Vital Signs Temp 37.0 C 03/27/19 16:17 Pulse 99 03/27/19 16:17 Resp 20 03/27/19 16:17 BP 126/81 03/27/19 16:17 Pulse Ox 99 03/27/19 16:17 - Orders/Labs/Meds Orders: Active Orders 24 hr Category Date Time Status Admission Status [Patient Status] [ADT] Routine ADT 03/27/19 21:40 Active Cardiac Monitoring [RC] .As Directed Care 03/27/19 21:40 Active EKG Documentation Completion [RC] ASDIRECTED Care 03/27/19 17:10 Active EKG Documentation Completion [RC] ASDIRECTED Care 03/27/19 21:50 Active Height and Weight [RC] DAILY Care 03/27/19 21:44 Active Intake and Output [RC] QSHIFT Care 03/27/19 21:47 Active Oxygen Therapy [RC] PRN Care 03/27/19 21:44 Active Up With Assistance [RC] ASDIRECTED Care 03/27/19 21:44 Active VTE/DVT Education [RC] Per Unit Routine Care 03/27/19 21:44 Active Vital Signs [RC] Q4H Care 03/27/19 21:44 Active Regular Diet [DIET] Diet 03/27/19 Dinner Active Ang Chest [CT] Stat Exams 03/27/19 19:05 Taken Chest 1V Frontal [CR] Stat Exams 03/27/19 17:10 Taken BASIC METABOLIC PANEL,BMP [CHEM] AM Lab 03/28/19 05:11 Ordered CBC WITH AUTO DIFF [HEME] AM Lab 03/28/19 05:11 Ordered TROPONIN I [CHEM] AM Lab 03/28/19 05:11 Ordered Acetaminophen [Tylenol] Med 03/27/19 21:44 Active 650 mg PO Q4H PRN Ondansetron [Zofran ODT] Med 03/27/19 21:44 Active 4 mg PO Q6H PRN Ondansetron [Zofran] Med 03/27/19 21:44 Active 4 mg IV Q6H PRN Sodium Chloride 0.9% [Normal Saline] 1,000 ml Med 03/27/19 21:45 Active IV ASDIRECTED Sodium Chloride 0.9% [Saline Flush] Med 03/27/19 17:10 Active 10 ml FLUSH ASDIRECTED PRN Peripheral IV Insertion Adult [OM.PC] Routine Oth 03/27/19 17:10 Ordered Resuscitation Status Routine Resus Stat 03/27/19 21:44 Ordered EKG 12 Lead [EK] AM Ther 03/28/19 05:11 Ordered EKG 12 Lead [EK] Routine Ther 03/27/19 17:10 Ordered Medication Orders Acetaminophen (Tylenol) 650 mg PO Q4H PRN PRN Reason: Pain (Mild 1-3)/fever Sodium Chloride (Normal Saline) 1,000 mls @ 125 mls/hr IV ASDIRECTED JOSE Last Admin: 03/28/19 00:07 Dose: 125 mls/hr Ondansetron HCl (Zofran Odt) 4 mg PO Q6H PRN PRN Reason: nausea, able to take PO Last Admin: 03/28/19 00:07 Dose: 4 mg Ondansetron HCl (Zofran) 4 mg IV Q6H PRN PRN Reason: Nausea/Vomiting Sodium Chloride (Saline Flush) 10 ml FLUSH ASDIRECTED PRN PRN Reason: Keep Vein Open Last Admin: 03/27/19 19:26 Dose: 10 ml Labs: Laboratory Tests 03/27/19 03/27/19 03/27/19 Range/Units 16:50 16:50 16:50 WBC 7.7 (4.5-12.0) X10-3/uL RBC 4.29 L (4.30-5.75) x10(6)uL Hgb 12.0 L (13.5-17.8) g/dL Hct 35.2 (30.0-51.3) % MCV 82.1 (80-96) fL MCH 27.9 (27.7-33.6) pg MCHC 34.0 (32.2-35.4) g/dL RDW 16.4 H (11.5-15.5) % Plt Count 150 (125-369) X10(3)uL MPV 9.4 (7.4-10.4) fL Neut % (Auto) 56.2 (46-82) % Lymph % (Auto) 39.7 H (13-37) % [place] % (Auto) 2.9 L (4-12) % Eos % (Auto) 1 (1.0-5.0) % Baso % (Auto) 0 (0-2) % Neut # (Auto) 4.3 (1.6-8.3) # Lymph # (Auto) 3.1 (0.6-5.0) # [place] # (Auto) 0.2 (0.0-1.3) # Eos # (Auto) 0.1 (0.0-0.8) # Baso # (Auto) 0.0 (0.0-0.2) # PT 10.0 (8.7-11.1) INR 1.03 (0.89-1.13) APTT 34.2 H (24.4-33.2) SECONDS Sodium 116 L* D (135-145) mmol/L Potassium 4.0 (3.5-5.3) mmol/L Chloride 83 L* D (100-110) mmol/L Carbon Dioxide 23 (21-32) mmol/L BUN 10 (7-18) mg/dL Creatinine 0.6 L (0.70-1.30) mg/dL Est Cr Clr Drug Dosing TNP Estimated GFR (MDRD) > 60 (>60) BUN/Creatinine Ratio 16.7 (9-20) Glucose 89 (80-116) mg/dL Calcium 8.8 (8.6-10.2) mg/dL Magnesium (1.8-2.5) mg/dL Total Bilirubin 0.4 (0.1-1.3) mg/dL AST 14 D (5-25) IU/L ALT 18 D (12-36) U/L Alkaline Phosphatase 110 (56-112) IU/L Troponin I (<0.017-0.056) ng/mL Total Protein 6.1 (6.0-8.0) g/dL Albumin 3.0 L (3.2-4.6) g/dL Globulin 3.1 g/dL Albumin/Globulin Ratio 1.0 03/27/19 03/27/19 Range/Units 16:50 16:50 WBC (4.5-12.0) X10-3/uL RBC (4.30-5.75) x10(6)uL Hgb (13.5-17.8) g/dL Hct (30.0-51.3) % MCV (80-96) fL MCH (27.7-33.6) pg MCHC (32.2-35.4) g/dL RDW (11.5-15.5) % Plt Count (125-369) X10(3)uL MPV (7.4-10.4) fL Neut % (Auto) (46-82) % Lymph % (Auto) (13-37) % [place] % (Auto) (4-12) % Eos % (Auto) (1.0-5.0) % Baso % (Auto) (0-2) % Neut # (Auto) (1.6-8.3) # Lymph # (Auto) (0.6-5.0) # [place] # (Auto) (0.0-1.3) # Eos # (Auto) (0.0-0.8) # Baso # (Auto) (0.0-0.2) # PT (8.7-11.1) INR (0.89-1.13) APTT (24.4-33.2) SECONDS Sodium (135-145) mmol/L Potassium (3.5-5.3) mmol/L Chloride (100-110) mmol/L Carbon Dioxide (21-32) mmol/L BUN (7-18) mg/dL Creatinine (0.70-1.30) mg/dL Est Cr Clr Drug Dosing Estimated GFR (MDRD) (>60) BUN/Creatinine Ratio (9-20) Glucose (80-116) mg/dL Calcium (8.6-10.2) mg/dL Magnesium 1.5 L (1.8-2.5) mg/dL Total Bilirubin (0.1-1.3) mg/dL AST (5-25) IU/L ALT (12-36) U/L Alkaline Phosphatase (56-112) IU/L Troponin I < 0.017 L (<0.017-0.056) ng/mL Total Protein (6.0-8.0) g/dL Albumin (3.2-4.6) g/dL Globulin g/dL Albumin/Globulin Ratio Meds: Medications Generic Name Dose Route Start Last Admin Trade Name Freq PRN Reason Stop Dose Admin Acetaminophen 650 mg 03/27/19 21:44 Tylenol PO Q4H PRN Pain (Mild 1-3)/fever Sodium Chloride 1,000 mls @ 125 mls/hr 03/27/19 21:45 03/28/19 00:07 Normal Saline IV 125 mls/hr ASDIRECTED JOSE Administration Ondansetron HCl 4 mg 11/11/19 21:44 03/28/19 00:07 Zofran Odt PO 4 mg Q6H PRN Administration nausea, able to take PO Ondansetron HCl 4 mg 03/27/19 21:44 Zofran IV Q6H PRN Nausea/Vomiting Sodium Chloride 10 ml 03/27/19 17:10 03/27/19 19:26 Saline Flush FLUSH 10 ml ASDIRECTED PRN Administration Keep Vein Open Discontinued Medications Generic Name Dose Route Start Last Admin Trade Name Freq PRN Reason Stop Dose Admin Sodium Chloride 1,000 mls @ 999 mls/hr 03/27/19 19:15 03/27/19 19:26 Normal Saline IV 999 mls/hr ASDIRECTED JOSE Administration Iopamidol 100 ml 03/27/19 19:40 03/27/19 20:04 [id number] (76%) IV 03/27/19 19:41 90 ml . DIRECTED ONE Administration - Radiology Interpretation Free Text/Narrative:: Portable chest x-ray showed persisting area in the right upper lobe and also persisting fluid in the right lower as well. CT scan of the chest (CTA) no evidence of pulmonary embolus. There was upper abdominal adenopathy and a small right pleural effusion with some pleural thickening in multiple lung lesions compared to a previous CT they really are unchanged except for decrease in size of the right upper lobe lesion. - Re-Assessments/Exams Free Text/Narrative Re-Assessment/Exam: 03/27/19 18:50: Patient with hyponatremia that is relatively severe. He also appears have some dehydration with borderline blood pressures. His chest pain does not appear to be cardiac and his initial troponin is negative. Because of the patient's history of cancer, I will send the patient for CTA of the chest rule out PE. The patient will need admission for close cardiac monitoring, IV fluid therapy with correction of his sodium and also for serial cardiac enzymes and EKGs. I feel that he will be able to be admitted here for those cares but I am awaiting the CTA of the chest prior to placing admission orders. I have discussed this with the patient and with his son and they are in agreement with this plan. 03/27/19 21:30: There was some delay through the PACS and images being sent to the radiologist. The patient was receiving IV normal saline and is blood pressure did improve. His dizziness resolved. He remained neurologically stable and his chest pain had essentially resolved. CT of his chest showed no evidence of pulmonary emboli and the lesion in his right upper lobe had improved from previous. I we will admit the patient here as planned above. This could not be safely accomplished as an outpatient. And, I feel the patient will need at least a 2 midnight stay to accomplish this plan of care. I will place admission orders and Dr. Hughes will assume care of the patient at 7 AM on 03/28/2019. Departure - Departure Time of Disposition: 19:40 Disposition: Admitted As Inpatient 64 Condition: Fair (Stable) Clinical Impression: Hyponatremia, Dehydration, Hypotension due to hypovolemia Chest pain Qualifiers: Chest pain type: unspecified Qualified Code(s): R07.9 - Chest pain, unspecified - My Orders Last 24 Hours: My Active Orders 03/27/19 17:10 EKG Documentation Completion [RC] ASDIRECTED Chest 1V Frontal [CR] Stat Sodium Chloride 0.9% [Saline Flush] 10 ml FLUSH ASDIRECTED PRN Peripheral IV Insertion Adult [OM.PC] Routine EKG 12 Lead [EK] Routine 03/27/19 19:05 Ang Chest [CT] Stat 03/27/19 21:40 Admission Status [Patient Status] [ADT] Routine Cardiac Monitoring [RC] .As Directed 03/27/19 21:44 Height and Weight [RC] DAILY Oxygen Therapy [RC] PRN Up With Assistance [RC] ASDIRECTED VTE/DVT Education [RC] Per Unit Routine Vital Signs [RC] Q4H Acetaminophen [Tylenol] 650 mg PO Q4H PRN Ondansetron [Zofran ODT] 4 mg PO Q6H PRN Ondansetron [Zofran] 4 mg IV Q6H PRN Resuscitation Status Routine 03/27/19 21:45 Sodium Chloride 0.9% [Normal Saline] 1,000 ml IV ASDIRECTED 03/27/19 21:47 Intake and Output [RC] QSHIFT 03/27/19 21:50 EKG Documentation Completion [RC] ASDIRECTED 03/27/19 Dinner Regular Diet [DIET] 03/28/19 05:11 BASIC METABOLIC PANEL,BMP [CHEM] AM CBC WITH AUTO DIFF [HEME] AM TROPONIN I [CHEM] AM EKG 12 Lead [EK] AM - Assessment/Plan Last 24 Hours: My Active Orders 03/27/19 17:10 EKG Documentation Completion [RC] ASDIRECTED Chest 1V Frontal [CR] Stat Sodium Chloride 0.9% [Saline Flush] 10 ml FLUSH ASDIRECTED PRN Peripheral IV Insertion Adult [OM.PC] Routine EKG 12 Lead [EK] Routine 03/27/19 19:05 Ang Chest [CT] Stat 03/27/19 21:40 Admission Status [Patient Status] [ADT] Routine Cardiac Monitoring [RC] .As Directed 03/27/19 21:44 Height and Weight [RC] DAILY Oxygen Therapy [RC] PRN Up With Assistance [RC] ASDIRECTED VTE/DVT Education [RC] Per Unit Routine Vital Signs [RC] Q4H Acetaminophen [Tylenol] 650 mg PO Q4H PRN Ondansetron [Zofran ODT] 4 mg PO Q6H PRN Ondansetron [Zofran] 4 mg IV Q6H PRN Resuscitation Status Routine 03/27/19 21:45 Sodium Chloride 0.9% [Normal Saline] 1,000 ml IV ASDIRECTED 03/27/19 21:47 Intake and Output [RC] QSHIFT 03/27/19 21:50 EKG Documentation Completion [RC] ASDIRECTED 03/27/19 Dinner Regular Diet [DIET] 03/28/19 05:11 BASIC METABOLIC PANEL,BMP [CHEM] AM CBC WITH AUTO DIFF [HEME] AM TROPONIN I [CHEM] AM EKG 12 Lead [EK] AM
[2019-03-27] MEDS ORDERED: Sodium Chloride 0.9% 1,000 ML IV SCH (19:15)
[2019-03-27] MEDS: Sodium Chloride 0.9% 10 ML Syringe FLUSH PRN (19:26)
[2019-03-27] MEDS ORDERED: Iopamidol 755 Mg/ML 100 ML Bottle IV ONE (19:40)
[2019-03-27] MEDS ORDERED: Ondansetron 4 MG/2 ML SDV IV PRN (21:44)
[2019-03-28] MEDS: Sodium Chloride 0.9% 1,000 ML IV SCH ×3 (00:07→16:17)
[2019-03-28] MEDS: Ondansetron 4 MG Tab.DIS PO PRN ×2 (00:07→08:10)
[2019-03-28] MEDS ORDERED: Finasteride 5 MG Tab PO SCH (10:27)
[2019-03-28] MEDS ORDERED: ACETAMINOPHEN 1000 MG PO PRN (10:27)
[2019-03-28] MEDS ORDERED: Metoclopramide 10 MG Tab PO PRN (10:27)
[2019-03-28] MEDS ORDERED: Oxymetazoline 0.05% Nasal Spray 15 ML Bottle NASBOTH SCH (10:30)
[2019-03-28] MEDS ORDERED: Baclofen 10 MG Tab PO ONE (10:30)
[2019-03-28] MEDS ORDERED: Hydrochlorothiazide 25 MG Tab PO SCH (10:30)
[2019-03-28] MEDS ORDERED: Tamsulosin 0.4 MG Cap.ER PO SCH (10:30)
[2019-03-28] MEDS: Nicotine 21 MG/24 Hr Patch TRDERM SCH (11:58)
[2019-03-28] MEDS: Folic Acid 1 MG Tab PO SCH (11:59)
[2019-03-28] MEDS: Magnesium Chloride 64 MG Tab.ER PO SCH ×2 (12:01→20:07)
[2019-03-28] MEDS: Lisinopril 10 MG Tab PO SCH (12:04)
[2019-03-28] MEDS: buPROPion 150 MG Tab.ER PO SCH (12:05)
[2019-03-28] MEDS: Simvastatin 20 MG Tab PO SCH (12:06)
[2019-03-28] MEDS: Potassium Chloride 10 MEQ Tab.ER PO SCH ×2 (12:07→20:06)
[2019-03-28] MEDS: Cholecalciferol (Vitamin D3) 25 MCG Tab PO SCH (12:07)
[2019-03-28] MEDS: Formoterol/Mometasone 200-5 MCG 8.8 GM Inhaler IH SCH ×2 (12:08→20:03)
[2019-03-28] MEDS: prednisoLONE Acetate 1% Ophth Susp 5 ML Bottle EYERT SCH ×2 (12:09→12:23)
[2019-03-28] MEDS: prednisoLONE Acetate 1% Ophth Susp 5 ML Bottle EYELF SCH ×3 (12:10→20:08)
[2019-03-28] MEDS: Ketorolac 0.5% Ophth Soln 5 ML Bottle EYEBOTH SCH ×4 (12:18→20:02)
[2019-03-28] MEDS: Acetaminophen 325 MG Tab PO PRN (16:16)
--- NOTE | 2019-03-28 16:57 | PCM.HP.2 ---
H&P History of Present Illness - General Date of Service: 03/28/19 Admit Problem/Dx: Admission Diagnosis/Problem Admission Diagnosis/Problem Hyponatremia Source of Information: Patient, EMS Notes Reviewed - History of Present Illness Initial Comments - Free Text/Narative: 63-year-old male who reports beginning at approximately 11 AM Wednesday he began have right-sided chest pain & shortness of breath.. Describes dull pain and no change with breathing or with cough. No fevers or chills or cough. He rates the pain as a 4/10. It does not radiate. No nausea or vomiting. Weakness and some dizziness. He reports that he has been eating and drinking normally. He also reports that he has been taking his medications as directed. No trauma. He states that he felt well yesterday and there were no antecedent symptoms. There are no other associated signs or symptoms. He has not been drinking copious amounts of water. He does take HCTZ. Admitted for hyponatremia. - Related Data Allergies/Adverse Reactions: Allergies Allergy/AdvReac Type Severity Reaction Status Date / Time Sulfa (Sulfonamide Allergy Cannot Verified 12/12/18 16:05 Antibiotics) Remember Home Medications: Home Meds Acetaminophen 1,000 mg PO Q6H PRN 05/01/17 [History] Cholecalciferol (Vitamin D3) [Vitamin D3] 1,000 unit PO DAILY 05/01/17 [History] Folic Acid 1 mg PO DAILY 05/01/17 [History] Budesonide/Formoterol [Symbicort 160-4.5 MCG] 2 puff IH BID 12/12/18 [History] Simvastatin 20 mg PO DAILY 12/12/18 [History] Tiotropium [Spiriva HandiHaler] 18 mcg IH DAILY@1600 12/12/18 [History] Baclofen 10 mg PO BID 03/27/19 [History] Finasteride 5 mg PO BEDTIME 03/27/19 [History] Lisinopril 10 mg PO DAILY 03/27/19 [History] Magnesium Chloride [Mag-64] 64 mg PO BID 03/27/19 [History] Metoclopramide HCl [Reglan] 10 mg PO TID PRN 03/27/19 [History] Oxymetazoline HCl [Nasal [place]] 1 spray NS ASDIRECTED PRN 03/27/19 [History] Polymyxin B Sulf/Trimethoprim [Polymyxin B-Tmp Eye Drops] 10 ml OP ASDIRECTED [History] Potassium Chloride 10 meq PO BID 03/27/19 [History] Tamsulosin [Tamsulosin 24 Hr] 0.4 mg PO BEDTIME 03/27/19 [History] buPROPion HCl [Bupropion Xl] 150 mg PO DAILY 03/27/19 [History] hydroCHLOROthiazide [Hydrochlorothiazide] 25 mg PO DAILY 03/27/19 [History] prednisoLONE Acetate [Prednisolone Acetate] 1 drop OP ASDIRECTED 03/27/19 [ History] Ketorolac [Acular 0.5% Ophth Soln] 1 drop OP ASDIRECTED 03/28/19 [History] Past Medical History HEENT History: Reports: Hard of Hearing, Impaired Vision Cardiovascular History: Reports: High Cholesterol, Hypertension Respiratory History: Reports: COPD, Pneumonia, Recurrent, Sleep Apnea Other Respiratory History: Is on O2 @ 2L/NC, just started last week. Genitourinary History: Reports: BPH, Urinary Incontinence Musculoskeletal History: Reports: Fracture Other Musculoskeletal History: hx fx R ankle, Psychiatric History: Reports: Addiction, Depression, Other (See Below) Other Psychiatric History: ETOH abuse, tx for ETOH abuse Endocrine/Metabolic History: Reports: Obesity/BMI 30+ Hematologic History: Reports: Other (See Below) Other Hematologic History: states that he has CLL and is still receiving ongoing treatment for it. Oncologic (Cancer) History: Reports: Leukemia Other Oncologic History: CLL - Infectious Disease History Infectious Disease History: Reports: Other (See Below) Other Infectious Disease History: [place] disease - Past Surgical History GI Surgical History: Reports: Appendectomy, Colonoscopy Musculoskeletal Surgical History: Reports: Shoulder Surgery, Other (See Below) Other Musculoskeletal Surgeries/Procedures:: finger surgery L hand, L thumb surgery, bilat shoulder surgery, surgery for pilonidal cyst Social & Family History - Family History Family Medical History: Noncontributory - Tobacco Use Smoking Status *Q: Current Every Day Smoker Years of Tobacco use: 45 Packs/Tins Daily: 2 - Caffeine Use Caffeine Use: Reports: Coffee Caffeine Use Comment: 4 cups per day for coffee - Recreational Drug Use Recreational Drug Use: No - Living Situation & Occupation Occupation: Disabled H&P Review of Systems - Review of Systems: Review Of Systems: See Below General: Reports: Weakness. Denies: Fever, Chills HEENT: Reports: No Symptoms Pulmonary: Reports: No Symptoms Cardiovascular: Reports: Chest Pain, Lightheadedness. Denies: Palpitations Gastrointestinal: Reports: No Symptoms Genitourinary: Reports: No Symptoms Musculoskeletal: Reports: No Symptoms Skin: Reports: Bruising (CLL) Psychiatric: Reports: No Symptoms Neurological: Reports: No Symptoms Hematologic/Lymphatic: Reports: Easy Bleeding, Easy Bruising Exam - Exam Exam: See Below - Vital Signs Vital Signs: Last Vital Signs Temp 97.4 F 03/28/19 12:00 Pulse 97 03/28/19 12:00 Resp 20 03/28/19 12:00 BP 135/77 03/28/19 12:04 Pulse Ox 96 03/28/19 12:00 Weight: 177 lb 7 oz - Exam General: Alert, Oriented, Cooperative HEENT: PERRLA, Hearing Intact, Mucosa Moist & Tamms, Nares Patent, Normal Nasal Septum, Posterior Pharynx Clear, Conjunctiva Clear, EOMI, EACs Clear, TMs Clear Neck: Supple, Trachea Midline, 2 Lungs: Clear to Auscultation, Normal Respiratory Effort Cardiovascular: Regular Rate, Regular Rhythm GI/Abdominal Exam: Normal Bowel Sounds, Soft, Non-Tender, No Organomegaly, No Distention, No Mass (Male) Exam: Deferred Rectal (Males) Exam: Deferred Back Exam: Normal Inspection Extremities: No Pedal Edema Skin: Ecchymosis (scattered on BLE) - Patient Data Lab Results Last 24 hrs: Laboratory Results - last 24 hr 03/27/19 03/27/19 03/27/19 Range/Units 16:50 16:50 16:50 WBC 7.7 (4.5-12.0) X10-3/uL RBC 4.29 L (4.30-5.75) x10(6)uL Hgb 12.0 L (13.5-17.8) g/dL Hct 35.2 (30.0-51.3) % MCV 82.1 (80-96) fL MCH 27.9 (27.7-33.6) pg MCHC 34.0 (32.2-35.4) g/dL RDW 16.4 H (11.5-15.5) % Plt Count 150 (125-369) X10(3)uL MPV 9.4 (7.4-10.4) fL Neut % (Auto) 56.2 (46-82) % Lymph % (Auto) 39.7 H (13-37) % [place] % (Auto) 2.9 L (4-12) % Eos % (Auto) 1 (1.0-5.0) % Baso % (Auto) 0 (0-2) % Neut # (Auto) 4.3 (1.6-8.3) # Lymph # (Auto) 3.1 (0.6-5.0) # [place] # (Auto) 0.2 (0.0-1.3) # Eos # (Auto) 0.1 (0.0-0.8) # Baso # (Auto) 0.0 (0.0-0.2) # Add Manual Diff Neutrophils % (Manual) (46-82) % Lymphocytes % (Manual) (13-37) % Monocytes % (Manual) (4-12) % PT 10.0 (8.7-11.1) INR 1.03 (0.89-1.13) APTT 34.2 H (24.4-33.2) SECONDS Sodium 116 L* D (135-145) mmol/L Potassium 4.0 (3.5-5.3) mmol/L Chloride 83 L* D (100-110) mmol/L Carbon Dioxide 23 (21-32) mmol/L BUN 10 (7-18) mg/dL Creatinine 0.6 L (0.70-1.30) mg/dL Est Cr Clr Drug Dosing TNP Estimated GFR (MDRD) > 60 (>60) BUN/Creatinine Ratio 16.7 (9-20) Glucose 89 (80-116) mg/dL Calcium 8.8 (8.6-10.2) mg/dL Magnesium (1.8-2.5) mg/dL Total Bilirubin 0.4 (0.1-1.3) mg/dL AST 14 D (5-25) IU/L ALT 18 D (12-36) U/L Alkaline Phosphatase 110 (56-112) IU/L Troponin I (<0.017-0.056) ng/mL Total Protein 6.1 (6.0-8.0) g/dL Albumin 3.0 L (3.2-4.6) g/dL Globulin 3.1 g/dL Albumin/Globulin Ratio 1.0 03/27/19 03/27/19 03/27/19 Range/Units 16:50 16:50 22:50 WBC (4.5-12.0) X10-3/uL RBC (4.30-5.75) x10(6)uL Hgb (13.5-17.8) g/dL Hct (30.0-51.3) % MCV (80-96) fL MCH (27.7-33.6) pg MCHC (32.2-35.4) g/dL RDW (11.5-15.5) % Plt Count (125-369) X10(3)uL MPV (7.4-10.4) fL Neut % (Auto) (46-82) % Lymph % (Auto) (13-37) % [place] % (Auto) (4-12) % Eos % (Auto) (1.0-5.0) % Baso % (Auto) (0-2) % Neut # (Auto) (1.6-8.3) # Lymph # (Auto) (0.6-5.0) # [place] # (Auto) (0.0-1.3) # Eos # (Auto) (0.0-0.8) # Baso # (Auto) (0.0-0.2) # Add Manual Diff Neutrophils % (Manual) (46-82) % Lymphocytes % (Manual) (13-37) % Monocytes % (Manual) (4-12) % PT (8.7-11.1) INR (0.89-1.13) APTT (24.4-33.2) SECONDS Sodium (135-145) mmol/L Potassium (3.5-5.3) mmol/L Chloride (100-110) mmol/L Carbon Dioxide (21-32) mmol/L BUN (7-18) mg/dL Creatinine (0.70-1.30) mg/dL Est Cr Clr Drug Dosing Estimated GFR (MDRD) (>60) BUN/Creatinine Ratio (9-20) Glucose (80-116) mg/dL Calcium (8.6-10.2) mg/dL Magnesium 1.5 L (1.8-2.5) mg/dL Total Bilirubin (0.1-1.3) mg/dL AST (5-25) IU/L ALT (12-36) U/L Alkaline Phosphatase (56-112) IU/L Troponin I < 0.017 L < 0.017 L (<0.017-0.056) ng/mL Total Protein (6.0-8.0) g/dL Albumin (3.2-4.6) g/dL Globulin g/dL Albumin/Globulin Ratio 03/28/19 03/28/19 03/28/19 Range/Units 06:00 06:00 06:00 WBC 7.4 (4.5-12.0) X10-3/uL RBC 4.07 L (4.30-5.75) x10(6)uL Hgb 11.4 L (13.5-17.8) g/dL Hct 33.3 (30.0-51.3) % MCV 81.9 (80-96) fL MCH 28.0 (27.7-33.6) pg MCHC 34.2 (32.2-35.4) g/dL RDW 16.7 H (11.5-15.5) % Plt Count 132 (125-369) X10(3)uL MPV 8.6 (7.4-10.4) fL Neut % (Auto) (46-82) % Lymph % (Auto) (13-37) % [place] % (Auto) (4-12) % Eos % (Auto) (1.0-5.0) % Baso % (Auto) (0-2) % Neut # (Auto) (1.6-8.3) # Lymph # (Auto) (0.6-5.0) # [place] # (Auto) (0.0-1.3) # Eos # (Auto) (0.0-0.8) # Baso # (Auto) (0.0-0.2) # Add Manual Diff Yes Neutrophils % (Manual) 52 (46-82) % Lymphocytes % (Manual) 43 H (13-37) % Monocytes % (Manual) 5 (4-12) % PT (8.7-11.1) INR (0.89-1.13) APTT (24.4-33.2) SECONDS Sodium 121 L (135-145) mmol/L Potassium 4.3 (3.5-5.3) mmol/L Chloride 88 L* D (100-110) mmol/L Carbon Dioxide 25 (21-32) mmol/L BUN 9 (7-18) mg/dL Creatinine 0.7 (0.70-1.30) mg/dL Est Cr Clr Drug Dosing 105.21 Estimated GFR (MDRD) > 60 (>60) BUN/Creatinine Ratio 12.9 (9-20) Glucose 80 (80-116) mg/dL Calcium 8.1 L (8.6-10.2) mg/dL Magnesium (1.8-2.5) mg/dL Total Bilirubin (0.1-1.3) mg/dL AST (5-25) IU/L ALT (12-36) U/L Alkaline Phosphatase (56-112) IU/L Troponin I < 0.017 L (<0.017-0.056) ng/mL Total Protein (6.0-8.0) g/dL Albumin (3.2-4.6) g/dL Globulin g/dL Albumin/Globulin Ratio Result Diagrams: 03/28/19 06:00 03/28/19 06:00 - Problem List (1) Chest pain SNOMED Code(s): 21303819 ICD Code: R07.9 - CHEST PAIN, UNSPECIFIED Status: Acute Current Visit: Yes Qualifiers: Chest pain type: unspecified Qualified Code(s): R07.9 - Chest pain, unspecified (2) Dehydration SNOMED Code(s): 47079611 ICD Code: E86.0 - DEHYDRATION Status: Acute Current Visit: Yes (3) Hyponatremia SNOMED Code(s): 69603865 ICD Code: E87.1 - HYPO-OSMOLALITY AND HYPONATREMIA Status: Acute Current Visit: Yes (4) 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 SNOMED Code(s): 46647022, 65302074 ICD Code: C91.Z2 - OTHER LYMPHOID LEUKEMIA, IN RELAPSE Status: Acute Current Visit: No Problem Details: (5) COPD exacerbation SNOMED Code(s): 357691577 ICD Code: J44.1 - CHRONIC OBSTRUCTIVE PULMONARY DISEASE W (ACUTE) EXACERBATION Status: Acute Current Visit: No (6) Current smoker SNOMED Code(s): 57126708 ICD Code: F17.200 - NICOTINE DEPENDENCE, UNSPECIFIED, UNCOMPLICATED Status : Acute Current Visit: No (7) Immunosuppressed status SNOMED Code(s): 84252850 ICD Code: D89.9 - DISORDER INVOLVING THE IMMUNE MECHANISM, UNSPECIFIED Status: Acute Current Visit: No Problem List Initiated/Reviewed/Updated: Yes Orders Last 24hrs: Active Orders 24 hr Category Date Time Status Admission Status [Patient Status] [ADT] Routine ADT 03/27/19 21:40 Active Cardiac Monitoring [RC] 08,16,00 Care 03/27/19 21:40 Active EKG Documentation Completion [RC] ASDIRECTED Care 03/27/19 21:50 Active Height and Weight [RC] 06 Care 03/27/19 21:44 Active Intake and Output [RC] QSHIFT Care 03/27/19 21:47 Active Oxygen Therapy [RC] PRN Care 03/27/19 21:44 Active Up With Assistance [RC] ASDIRECTED Care 03/27/19 21:44 Active VTE/DVT Education [RC] Per Unit Routine Care 03/27/19 21:44 Active Vital Signs [RC] Q4H Care 03/27/19 21:44 Active Regular Diet [DIET] Diet 03/27/19 Dinner Active Ang Chest [CT] Stat Exams 03/27/19 19:05 Taken Chest 1V Frontal [CR] Stat Exams 03/27/19 17:10 Taken Acetaminophen [Tylenol] Med 03/27/19 21:44 Active 650 mg PO Q4H PRN Baclofen [Lioresal] Med 03/28/19 21:00 Active 10 mg PO BID Cholecalciferol (Vitamin D3) [Vitamin D3] Med 03/28/19 11:00 Active 25 mcg PO DAILY Finasteride [Proscar] Med 03/28/19 21:00 Active 5 mg PO BEDTIME Folic Acid Med 03/28/19 10:30 Active 1 mg PO DAILY Ketorolac [Acular 0.5% Ophth Soln] Med 03/28/19 11:30 Active 0 ml EYEBOTH QID Lisinopril [Prinivil] Med 03/28/19 10:30 Active 10 mg PO DAILY Magnesium Chloride [Mag-64] Med 03/28/19 10:30 Active 64 mg PO BID Metoclopramide [Reglan] Med 03/28/19 10:27 Active 10 mg PO TID PRN Mometasone/Formoterol [Dulera 200-5 MCG] Med 03/28/19 11:15 Active 2 puff IH BID Nicotine [Habitrol] Med 03/28/19 09:45 Active 21 mg TRDERM Q24H Ondansetron [Zofran ODT] Med 03/27/19 21:44 Active 4 mg PO Q6H PRN Ondansetron [Zofran] Med 03/27/19 21:44 Active 4 mg IV Q6H PRN Potassium Chloride [Klor-Con 10] Med 03/28/19 10:45 Active 10 meq PO BID Simvastatin [Zocor] Med 03/28/19 10:30 Active 20 mg PO DAILY Sodium Chloride 0.9% [Normal Saline] 1,000 ml Med 03/27/19 21:45 Active IV ASDIRECTED Sodium Chloride 0.9% [Saline Flush] Med 03/27/19 17:10 Active 10 ml FLUSH ASDIRECTED PRN Tamsulosin [Flomax] Med 03/28/19 21:00 Active 0.4 mg PO BEDTIME Tiotropium [Spiriva HandiHaler] Med 03/28/19 16:00 Active 18 mcg INH DAILY@1600 buPROPion [Wellbutrin XL] Med 03/28/19 10:30 Active 150 mg PO DAILY prednisoLONE acetate [Pred Forte 1% Ophth Susp] Med 03/28/19 11:00 Active 0 ml EYELF BID prednisoLONE acetate [Pred Forte 1% Ophth Susp] Med 03/28/19 11:30 Active 0 ml EYERT DAILY Peripheral IV Insertion Adult [OM.PC] Routine Oth 03/27/19 17:10 Ordered Resuscitation Status Routine Resus Stat 03/27/19 21:44 Ordered EKG 12 Lead [EK] AM Ther 03/28/19 05:11 Ordered EKG 12 Lead [EK] Routine Ther 03/27/19 17:10 Ordered Medication Orders Acetaminophen (Tylenol) 650 mg PO Q4H PRN PRN Reason: Pain (Mild 1-3)/fever Last Admin: 03/28/19 16:16 Dose: 650 mg Baclofen (Lioresal) 10 mg PO BID JOSE Bupropion HCl (Wellbutrin Xl) 150 mg PO DAILY JOSE Last Admin: 03/28/19 12:05 Dose: 150 mg Cholecalciferol (Vitamin D3) 25 mcg PO DAILY [facility] Last Admin: 03/28/19 12:07 Dose: 25 mcg Finasteride (Proscar) 5 mg PO BEDTIME [facility] Folic Acid (Folic Acid) 1 mg PO DAILY [facility] Last Admin: 03/28/19 11:59 Dose: 1 mg Sodium Chloride (Normal Saline) 1,000 mls @ 125 mls/hr IV ASDIRECTED [facility] Last Admin: 03/28/19 16:17 Dose: 125 mls/hr Infusion: 03/28/19 16:04 Dose: 125 mls/hr Admin: 03/28/19 08:04 Dose: 125 mls/hr Infusion: 03/28/19 08:04 Dose: 125 mls/hr Admin: 03/28/19 00:07 Dose: 125 mls/hr Ketorolac Tromethamine (Acular 0.5% Ophth Soln) 0 ml EYEBOTH QID [facility] Last Admin: 03/28/19 14:01 Dose: Admin: 03/28/19 12:18 Dose: 1 drop Lisinopril (Prinivil) 10 mg PO DAILY [facility] Last Admin: 03/28/19 12:04 Dose: 10 mg Magnesium Chloride (Mag-64) 64 mg PO BID [facility] Last Admin: 03/28/19 12:01 Dose: 64 mg Metoclopramide HCl (Reglan) 10 mg PO TID PRN PRN Reason: Nausea Last Admin: 03/28/19 12:55 Dose: 10 mg Mometasone Furoate/Formoterol Fumar (Dulera 200-5 Mcg) 2 puff IH BID [facility] Last Admin: 03/28/19 12:08 Dose: 2 puff Nicotine (Habitrol) 21 mg TRDERM Q24H [facility] Last Admin: 03/28/19 11:58 Dose: Not Given Ondansetron HCl (Zofran Odt) 4 mg PO Q6H PRN PRN Reason: nausea, able to take PO Last Admin: 03/28/19 08:10 Dose: 4 mg Admin: 03/28/19 00:07 Dose: 4 mg Ondansetron HCl (Zofran) 4 mg IV Q6H PRN PRN Reason: Nausea/Vomiting Potassium Chloride (Klor-Con 10) 10 meq PO BID [facility] Last Admin: 03/28/19 12:07 Dose: 10 meq Prednisolone Acetate (Pred Forte 1% Ophth Susp) 0 ml EYERT DAILY [facility] Last Admin: 03/28/19 12:23 Dose: Prednisolone Acetate (Pred Forte 1% Ophth Susp) 0 ml EYELF BID [facility] Last Admin: 03/28/19 12:23 Dose: Simvastatin (Zocor) 20 mg PO DAILY [facility] Last Admin: 03/28/19 12:06 Dose: 20 mg Sodium Chloride (Saline Flush) 10 ml FLUSH ASDIRECTED PRN PRN Reason: Keep Vein Open Last Admin: 03/27/19 19:26 Dose: 10 ml Tamsulosin HCl (Flomax) 0.4 mg PO BEDTIME [facility] Tiotropium [place] (Spiriva Handihaler) 18 mcg INH DAILY@1600 [facility] Assessment/Plan Comment:: 1. Admit to inpatient for IV fluids, monitoring, and serial enzymes. 2. Resume home medications, hold HCTZ. 3. Repeat labs. 4. FULL CODE. 5. On immunotherapy Rituxan so will check with pharmacy to make sure this is not cause of hyponatremia though patient states that he had low sodium one time after starting it in the past.
[2019-03-28] MEDS: Tiotropium Inhaler 18 MCG Inhalation Powder Cap Kit of 5 INH SCH (17:53)
[2019-03-28] MEDS: Tamsulosin 0.4 MG Cap.ER PO SCH (20:06)
[2019-03-28] MEDS: Baclofen 10 MG Tab PO SCH (20:07)
[2019-03-28] MEDS: Finasteride 5 MG Tab PO SCH (20:10)
[2019-03-29] MEDS: Acetaminophen 325 MG Tab PO PRN ×3 (00:02→18:44)
[2019-03-29] MEDS: Sodium Chloride 0.9% 1,000 ML IV SCH ×3 (00:04→16:27)
[2019-03-29] MEDS: Ketorolac 0.5% Ophth Soln 5 ML Bottle EYEBOTH SCH ×4 (08:34→21:56)
[2019-03-29] MEDS: prednisoLONE Acetate 1% Ophth Susp 5 ML Bottle EYERT SCH (08:36)
[2019-03-29] MEDS: prednisoLONE Acetate 1% Ophth Susp 5 ML Bottle EYELF SCH ×2 (08:36→22:03)
[2019-03-29] MEDS: Cholecalciferol (Vitamin D3) 25 MCG Tab PO SCH (08:37)
[2019-03-29] MEDS: Lisinopril 10 MG Tab PO SCH (08:37)
[2019-03-29] MEDS: Formoterol/Mometasone 200-5 MCG 8.8 GM Inhaler IH SCH ×2 (08:37→21:59)
[2019-03-29] MEDS: buPROPion 150 MG Tab.ER PO SCH (08:38)
[2019-03-29] MEDS: Simvastatin 20 MG Tab PO SCH (08:39)
[2019-03-29] MEDS: Folic Acid 1 MG Tab PO SCH (08:40)
[2019-03-29] MEDS: Potassium Chloride 10 MEQ Tab.ER PO SCH ×2 (08:40→22:05)
[2019-03-29] MEDS: Baclofen 10 MG Tab PO SCH ×2 (08:42→22:06)
[2019-03-29] MEDS: Nicotine 21 MG/24 Hr Patch TRDERM SCH (09:00)
[2019-03-29] MEDS: Magnesium Chloride 64 MG Tab.ER PO SCH ×2 (09:56→22:06)
[2019-03-29] MEDS: Ondansetron 4 MG Tab.DIS PO PRN (11:30)
--- NOTE | 2019-03-29 13:43 | CR ---
INDICATION: Chest pain. CHEST: An AP portable upright view of the chest, 03/27/19, was compared with and 07/26/17, revealing resolving pleural parenchymal changes and/or fibrotic changes at the right lung base, although recurrent patchy pneumonia and pleuritis could also be present in that area. The heart did not appear grossly enlarged. The aorta is minimally calcified in the arch area. Overlying EKG leads are noted. Port-A-Cath on the right is noted in good position. Left lung and pleural space were unremarkable in appearance. IMPRESSION: Pleural parenchymal changes on the right, most likely on the basis of fibrosis, although recurring or new additional pneumonia and pleuritis could also be present versus resolving pneumonia and pleuritis versus pleural parenchymal fibrosis. Followup may be warranted, depending upon clinical correlation. MTDD
--- NOTE | 2019-03-29 14:08 | PCM.PN ---
- General Info Date of Service: 03/29/19 Admission Dx/Problem (Free Text): Patient is feeling better this morning. Did state that he is a little constipated, takes Senna Plus at home 2 a day and also takes Amitriptyline 50 mg at bedtime that he forgot about yesterday. No right sided chest pain. Has appt with Dr Oakes on Apr 04. - Review of Systems General: Reports: No Symptoms Pulmonary: Reports: No Symptoms Cardiovascular: Reports: No Symptoms Gastrointestinal: Reports: Constipation, Nausea, Vomiting Genitourinary: Reports: No Symptoms - Patient Data Vitals - Most Recent: Last Vital Signs Temp 98.0 F 03/29/19 12:00 Pulse 93 03/29/19 12:00 Resp 20 03/29/19 12:00 BP 133/81 03/29/19 12:00 Pulse Ox 97 03/29/19 12:00 Weight - Most Recent: 182 lb 1.6 oz I&O - Last 24 Hours: Intake & Output 03/28/19 03/29/19 03/29/19 22:59 06:59 14:59 Intake Total 1041 425 630 Output Total 650 700 Balance 1041 -225 -70 Lab Results Last 24 Hours: Laboratory Results - last 24 hr 03/29/19 Range/Units 06:08 Sodium 126 L (135-145) mmol/L Potassium 4.3 (3.5-5.3) mmol/L Chloride 94 L D (100-110) mmol/L Carbon Dioxide 23 (21-32) mmol/L BUN 7 (7-18) mg/dL Creatinine 0.7 (0.70-1.30) mg/dL Est Cr Clr Drug Dosing 105.21 mL/min Estimated GFR (MDRD) > 60 (>60) BUN/Creatinine Ratio 10.0 (9-20) Glucose 79 L (80-116) mg/dL Calcium 8.3 L (8.6-10.2) mg/dL Med Orders - Current: Current Medications Acetaminophen (Tylenol) 650 mg PO Q4H PRN PRN Reason: Pain (Mild 1-3)/fever Last Admin: 03/29/19 05:00 Dose: 650 mg Amitriptyline HCl (Elavil) 50 mg PO BEDTIME JOSE Baclofen (Lioresal) 10 mg PO BID JOSE Last Admin: 03/29/19 08:42 Dose: 10 mg Bupropion HCl (Wellbutrin Xl) 150 mg PO DAILY [facility] Last Admin: 03/29/19 08:38 Dose: 150 mg Cholecalciferol (Vitamin D3) 25 mcg PO DAILY [facility] Last Admin: 03/29/19 08:37 Dose: 25 mcg Finasteride (Proscar) 5 mg PO BEDTIME [facility] Last Admin: 03/28/19 20:10 Dose: 5 mg Folic Acid (Folic Acid) 1 mg PO DAILY [facility] Last Admin: 03/29/19 08:40 Dose: 1 mg Sodium Chloride (Normal Saline) 1,000 mls @ 125 mls/hr IV ASDIRECTED [facility] Last Admin: 03/29/19 08:20 Dose: 125 mls/hr Ketorolac Tromethamine (Acular 0.5% Ophth Soln) 0 ml EYEBOTH QID [facility] Last Admin: 03/29/19 13:02 Dose: 1 drop Lisinopril (Prinivil) 10 mg PO DAILY [facility] Last Admin: 03/29/19 08:37 Dose: 10 mg Magnesium Chloride (Mag-64) 64 mg PO BID [facility] Last Admin: 03/29/19 09:56 Dose: 64 mg Metoclopramide HCl (Reglan) 10 mg PO TID PRN PRN Reason: Nausea Last Admin: 03/28/19 12:55 Dose: 10 mg Mometasone Furoate/Formoterol Fumar (Dulera 200-5 Mcg) 2 puff IH BID [facility] Last Admin: 03/29/19 08:37 Dose: 2 puff Nicotine (Habitrol) 21 mg TRDERM Q24H [facility] Last Admin: 03/29/19 09:00 Dose: Not Given Ondansetron HCl (Zofran Odt) 4 mg PO Q6H PRN PRN Reason: nausea, able to take PO Last Admin: 03/29/19 11:30 Dose: 4 mg Ondansetron HCl (Zofran) 4 mg IV Q6H PRN PRN Reason: Nausea/Vomiting Potassium Chloride (Klor-Con 10) 10 meq PO BID [facility] Last Admin: 03/29/19 08:40 Dose: 10 meq Prednisolone Acetate (Pred Forte 1% Ophth Susp) 0 ml EYERT DAILY [facility] Last Admin: 03/29/19 08:36 Dose: 1 drop Prednisolone Acetate (Pred Forte 1% Ophth Susp) 0 ml EYELF BID [facility] Last Admin: 03/29/19 08:36 Dose: 1 drop Senna/Docusate Sodium (Senna Plus) 2 tab PO DAILY [facility] Last Admin: 03/29/19 09:11 Dose: 2 tab Simvastatin (Zocor) 20 mg PO DAILY [facility] Last Admin: 03/29/19 08:39 Dose: 20 mg Sodium Chloride (Saline Flush) 10 ml FLUSH ASDIRECTED PRN PRN Reason: Keep Vein Open Last Admin: 03/27/19 19:26 Dose: 10 ml Tamsulosin HCl (Flomax) 0.4 mg PO BEDTIME [facility] Last Admin: 03/28/19 20:06 Dose: 0.4 mg Tiotropium [place] (Spiriva Handihaler) 18 mcg INH DAILY@1600 [facility] Last Admin: 03/28/19 17:53 Dose: 1 inhalation Discontinued Medications Baclofen (Lioresal) 10 mg PO ONETIME ONE Stop: 03/28/19 10:31 Last Admin: 03/28/19 12:00 Dose: 10 mg Sodium Chloride (Normal Saline) 1,000 mls @ 999 mls/hr IV ASDIRECTED [facility] Last Admin: 03/27/19 19:26 Dose: 999 mls/hr Iopamidol (Isovue-370 (76%)) 100 ml IV . DIRECTED ONE Stop: 03/27/19 19:41 Last Admin: 03/27/19 20:04 Dose: 90 ml - Exam General: Alert, Oriented, Cooperative, No Acute Distress Lungs: Clear to Auscultation, Normal Respiratory Effort Cardiovascular: Regular Rate, Regular Rhythm GI/Abdominal Exam: Normal Bowel Sounds, Soft, Non-Tender, No Distention Extremities: No Pedal Edema Skin: Ecchymosis (scattered) - Problem List & Annotations (1) Chest pain SNOMED Code(s): 33423637 Code(s): R07.9 - CHEST PAIN, UNSPECIFIED Status: Resolved Current Visit: Yes Qualifiers: Chest pain type: unspecified Qualified Code(s): R07.9 - Chest pain, unspecified (2) Dehydration SNOMED Code(s): 92694971 Code(s): E86.0 - DEHYDRATION Status: Resolved Current Visit: Yes (3) Hyponatremia SNOMED Code(s): 60879998 Code(s): E87.1 - HYPO-OSMOLALITY AND HYPONATREMIA Status: Acute Current Visit: Yes Annotation/Comment:: improving (4) 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 SNOMED Code(s): 55269208, 83012148 Code(s): C91.Z2 - OTHER LYMPHOID LEUKEMIA, IN RELAPSE Status: Acute Current Visit: No Annotation/Comment:: (5) COPD exacerbation SNOMED Code(s): 168205059 Code(s): J44.1 - CHRONIC OBSTRUCTIVE PULMONARY DISEASE W (ACUTE) EXACERBATION Status: Acute Current Visit: No (6) Current smoker SNOMED Code(s): 90630201 Code(s): F17.200 - NICOTINE DEPENDENCE, UNSPECIFIED, UNCOMPLICATED Status: Acute Current Visit: No (7) Immunosuppressed status SNOMED Code(s): 88588438 Code(s): D89.9 - DISORDER INVOLVING THE IMMUNE MECHANISM, UNSPECIFIED Status: Acute Current Visit: No - Problem List Review Problem List Initiated/Reviewed/Updated: Yes - My Orders Last 24 Hours: My Active Orders 03/28/19 16:00 Tiotropium [Spiriva HandiHaler] 18 mcg INH DAILY@1600 03/28/19 21:00 Baclofen [Lioresal] 10 mg PO BID Finasteride [Proscar] 5 mg PO BEDTIME Tamsulosin [Flomax] 0.4 mg PO BEDTIME 03/29/19 09:00 Docusate Sodium/Sennosides [Senna Plus] 2 tab PO DAILY 03/29/19 21:00 Amitriptyline [Elavil] 50 mg PO BEDTIME 03/30/19 06:00 BASIC METABOLIC PANEL,BMP [CHEM] Routine - Plan Plan:: 1. Sodium up to 126 today, would like him to be around 131 or above to discharge. 2. Senna Plus and Amitriptyline 3. Repeat labs. 4. Spoke with Dr Oakes who was here seeing another patient, he stated he would put order in to recheck his Sodium at his appointment on Wednesday. 5. Anticipate discharge tomorrow.
[2019-03-29] MEDS: Tiotropium Inhaler 18 MCG Inhalation Powder Cap Kit of 5 INH SCH (15:41)
[2019-03-29] MEDS ORDERED: Nicotine 21 MG/24 Hr Patch TRDERM ONE (20:08)
[2019-03-29] MEDS ORDERED: Amitriptyline 25 MG Tab PO SCH (21:00)
[2019-03-29] MEDS: Tamsulosin 0.4 MG Cap.ER PO SCH (22:05)
[2019-03-29] MEDS: Finasteride 5 MG Tab PO SCH (22:09)
[2019-03-30] MEDS: Sodium Chloride 0.9% 1,000 ML IV SCH (00:10)
[2019-03-30] MEDS: Acetaminophen 325 MG Tab PO PRN ×2 (00:20→04:31)
--- NOTE | 2019-03-30 08:38 | PCM.DCSUM1 ---
Discharge Summary - Hospital Course HPI Initial Comments: 63-year-old male who reports beginning at approximately 11 AM Wednesday he began have right-sided chest pain & shortness of breath.. Describes dull pain and no change with breathing or with cough. No fevers or chills or cough. He rates the pain as a 4/10. It does not radiate. No nausea or vomiting. Weakness and some dizziness. He reports that he has been eating and drinking normally. He also reports that he has been taking his medications as directed. No trauma. He states that he felt well yesterday and there were no antecedent symptoms. There are no other associated signs or symptoms. He has not been drinking copious amounts of water. He does take HCTZ. Admitted for hyponatremia. Diagnosis: Stroke: No - Discharge Data Discharge Date: 03/30/19 Discharge Disposition: Home, W Home Health Agency 06 Condition: Stable - Referral to Home Health Date of Face to Face Encounter: 03/30/19 Reason for Homebound Status: COPD, CLL Primary Care Physician: Vahid Oakes MD Skilled Need: [facility] - Discharge Diagnosis/Problem(s) (1) Chest pain SNOMED Code(s): 97052875 ICD Code: R07.9 - CHEST PAIN, UNSPECIFIED Status: Resolved Current Visit : Yes Qualifiers: Chest pain type: unspecified Qualified Code(s): R07.9 - Chest pain, unspecified (2) Dehydration SNOMED Code(s): 26914716 ICD Code: E86.0 - DEHYDRATION Status: Resolved Current Visit: Yes (3) Hyponatremia SNOMED Code(s): 14920865 ICD Code: E87.1 - HYPO-OSMOLALITY AND HYPONATREMIA Status: Acute Current Visit: Yes Problem Details: improving (4) 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 SNOMED Code(s): 16564494, 62513110 ICD Code: C91.Z2 - OTHER LYMPHOID LEUKEMIA, IN RELAPSE Status: Chronic Current Visit: No Problem Details: (5) COPD exacerbation SNOMED Code(s): 249263187 ICD Code: J44.1 - CHRONIC OBSTRUCTIVE PULMONARY DISEASE W (ACUTE) EXACERBATION Status: Chronic Current Visit: No (6) Current smoker SNOMED Code(s): 49567693 ICD Code: F17.200 - NICOTINE DEPENDENCE, UNSPECIFIED, UNCOMPLICATED Status : Acute Current Visit: No (7) Immunosuppressed status SNOMED Code(s): 53553984 ICD Code: D89.9 - DISORDER INVOLVING THE IMMUNE MECHANISM, UNSPECIFIED Status: Chronic Current Visit: No - Patient Summary/Data Hospital Course: Patient had negative troponin x 3 sets, no further chest pain during admission. IV fluids for sodium replacement with fluid restriction. Sodium gradual increased 4-5 points each day. Sodium was 130 at discharge, asymptomatic. Systolic blood pressures 140-150s, HCTZ had been held on admission. Lisinopril increased to 20 mg daily and potassium discontinued. Will have recheck with Dr Oakes as outpatient on 04/04/19 for sodium recheck and blood pressure medication adjustment if needed. Had a heat rash on medial legs after sleeping with blanket, normally has body pillow at home, recommended OTC Cortisone as needed. - Patient Instructions Diet: Regular Diet as Tolerated Activity: As Tolerated Driving: May Drive Today Showering/Bathing: May Shower Notify Provider of: Fever, Increased Pain, Nausea and/or Vomiting Other/Special Instructions: Follow up with Dr Oakes on WednesdayApr 04 as previously scheduled. - Discharge Plan *PRESCRIPTION DRUG MONITORING PROGRAM REVIEWED*: Not Applicable *COPY OF PRESCRIPTION DRUG MONITORING REPORT IN PATIENT JOSSY: Not Applicable Prescriptions/Med Rec: Lisinopril [Prinivil] 20 mg PO DAILY 30 Days #30 tablet Home Medications: Home Meds Cholecalciferol (Vitamin D3) [Vitamin D3] 1,000 unit PO DAILY 05/01/17 [History] Folic Acid 1 mg PO DAILY 05/01/17 [History] Budesonide/Formoterol [Symbicort 160-4.5 MCG] 2 puff IH BID 12/12/18 [History] Simvastatin 20 mg PO DAILY 12/12/18 [History] Tiotropium [Spiriva HandiHaler] 18 mcg IH DAILY@1600 12/12/18 [History] Baclofen 10 mg PO BID 03/27/19 [History] Finasteride 5 mg PO BEDTIME 03/27/19 [History] Magnesium Chloride [Mag-64] 64 mg PO BID 03/27/19 [History] Metoclopramide HCl [Reglan] 10 mg PO TID PRN 03/27/19 [History] Tamsulosin [Flomax] 0.4 mg PO BEDTIME 03/27/19 [History] buPROPion HCl [Bupropion Xl] 150 mg PO DAILY 03/27/19 [History] Amitriptyline [Elavil] 50 mg PO BEDTIME 03/29/19 [History] Sennosides/Docusate Sodium [Senna-Docusate Sodium Tablet] 2 each PO DAILY [History] Ketorolac [Acular 0.5% Ophth Soln] 0 ml EYEBOTH QID bottle 03/30/19 [Rx] Lisinopril [Prinivil] 20 mg PO DAILY 30 Days #30 tablet 03/30/19 [Rx] prednisoLONE acetate [Pred Forte 1% Ophth Susp] 0 ml EYELF BID bottle 03/30/19 [Rx] prednisoLONE acetate [Pred Forte 1% Ophth Susp] 0 ml EYERT DAILY bottle [Rx] Oxygen Therapy Mode: Room Air Patient Handouts: Hyponatremia, [id number], Venous Thromboembolism Prevention Forms: ED Department Discharge Referrals: Vahid Oakes MD [Primary Care Provider] - - Discharge Summary/Plan Comment DC Time >30 min.: No - Patient Data Vitals - Most Recent: Last Vital Signs Temp 98 F 03/30/19 04:00 Pulse 98 03/30/19 04:00 Resp 18 03/30/19 04:00 BP 158/86 H 03/30/19 04:00 Pulse Ox 99 03/30/19 04:00 Weight - Most Recent: 181 lb 6 oz I&O - Last 24 hours: Intake & Output 03/29/19 03/30/19 03/30/19 22:59 06:59 14:59 Intake Total 1329 1412 Output Total 1250 1125 Balance 79 287 Lab Results - Last 24 hrs: Laboratory Results - last 24 hr 03/30/19 Range/Units 06:18 Sodium 130 L (135-145) mmol/L Potassium 4.1 (3.5-5.3) mmol/L Chloride 99 L D (100-110) mmol/L Carbon Dioxide 23 (21-32) mmol/L BUN 6 L (7-18) mg/dL Creatinine 0.7 (0.70-1.30) mg/dL Est Cr Clr Drug Dosing 105.21 mL/min Estimated GFR (MDRD) > 60 (>60) BUN/Creatinine Ratio 8.6 L (9-20) Glucose 79 L (80-116) mg/dL Calcium 8.4 L (8.6-10.2) mg/dL Med Orders - Current: Current Medications Acetaminophen (Tylenol) 650 mg PO Q4H PRN PRN Reason: Pain (Mild 1-3)/fever Last Admin: 03/30/19 04:31 Dose: 650 mg Amitriptyline HCl (Elavil) 50 mg PO BEDTIME [facility] Last Admin: 03/29/19 22:04 Dose: 50 mg Baclofen (Lioresal) 10 mg PO BID [facility] Last Admin: 03/29/19 22:06 Dose: 10 mg Bupropion HCl (Wellbutrin Xl) 150 mg PO DAILY [facility] Last Admin: 03/29/19 08:38 Dose: 150 mg Cholecalciferol (Vitamin D3) 25 mcg PO DAILY [facility] Last Admin: 03/29/19 08:37 Dose: 25 mcg Finasteride (Proscar) 5 mg PO BEDTIME [facility] Last Admin: 03/29/19 22:09 Dose: 5 mg Folic Acid (Folic Acid) 1 mg PO DAILY [facility] Last Admin: 03/29/19 08:40 Dose: 1 mg Sodium Chloride (Normal Saline) 1,000 mls @ 125 mls/hr IV ASDIRECTED [facility] Last Admin: 03/30/19 00:10 Dose: 125 mls/hr Ketorolac Tromethamine (Acular 0.5% Ophth Soln) 0 ml EYEBOTH QID [facility] Last Admin: 03/29/19 21:56 Dose: 1 drop Lisinopril (Prinivil) 20 mg PO DAILY [facility] Magnesium Chloride (Mag-64) 64 mg PO BID [facility] Last Admin: 03/29/19 22:06 Dose: 64 mg Metoclopramide HCl (Reglan) 10 mg PO TID PRN PRN Reason: Nausea Last Admin: 03/28/19 12:55 Dose: 10 mg Mometasone Furoate/Formoterol Fumar (Dulera 200-5 Mcg) 2 puff IH BID [facility] Last Admin: 03/29/19 21:59 Dose: 2 puff Nicotine (Habitrol) 21 mg TRDERM Q24H [facility] Ondansetron HCl (Zofran Odt) 4 mg PO Q6H PRN PRN Reason: nausea, able to take PO Last Admin: 03/29/19 11:30 Dose: 4 mg Ondansetron HCl (Zofran) 4 mg IV Q6H PRN PRN Reason: Nausea/Vomiting Prednisolone Acetate (Pred Forte 1% Ophth Susp) 0 ml EYERT DAILY [facility] Last Admin: 03/29/19 08:36 Dose: 1 drop Prednisolone Acetate (Pred Forte 1% Ophth Susp) 0 ml EYELF BID [facility] Last Admin: 03/29/19 22:03 Dose: 1 drop Senna/Docusate Sodium (Senna Plus) 2 tab PO DAILY [facility] Last Admin: 03/29/19 09:11 Dose: 2 tab Simvastatin (Zocor) 20 mg PO DAILY [facility] Last Admin: 03/29/19 08:39 Dose: 20 mg Sodium Chloride (Saline Flush) 10 ml FLUSH ASDIRECTED PRN PRN Reason: Keep Vein Open Last Admin: 03/27/19 19:26 Dose: 10 ml Tamsulosin HCl (Flomax) 0.4 mg PO BEDTIME [facility] Last Admin: 03/29/19 22:05 Dose: 0.4 mg Tiotropium [place] (Spiriva Handihaler) 18 mcg INH DAILY@1600 [facility] Last Admin: 03/29/19 15:41 Dose: 1 inhalation Discontinued Medications Baclofen (Lioresal) 10 mg PO ONETIME ONE Stop: 03/28/19 10:31 Last Admin: 03/28/19 12:00 Dose: 10 mg Sodium Chloride (Normal Saline) 1,000 mls @ 999 mls/hr IV ASDIRECTED [facility] Last Admin: 03/27/19 19:26 Dose: 999 mls/hr Iopamidol (Isovue-370 (76%)) 100 ml IV . DIRECTED ONE Stop: 03/27/19 19:41 Last Admin: 03/27/19 20:04 Dose: 90 ml Lisinopril (Prinivil) 10 mg PO DAILY [facility] Last Admin: 03/29/19 08:37 Dose: 10 mg Nicotine (Habitrol) 21 mg TRDERM Q24H [facility] Last Admin: 03/29/19 09:00 Dose: Not Given Nicotine (Habitrol) 21 mg TRDERM ONETIME ONE Stop: 03/29/19 20:09 Last Admin: 03/29/19 20:13 Dose: 21 mg Potassium Chloride (Klor-Con 10) 10 meq PO BID [facility] Last Admin: 03/29/19 22:05 Dose: 10 meq - Exam General: Reports: Alert, Oriented, Cooperative, No Acute Distress Lungs: Reports: Clear to Auscultation, Normal Respiratory Effort Cardiovascular: Reports: Regular Rate, Regular Rhythm GI/Abdominal Exam: Normal Bowel Sounds, Soft, Non-Tender, No Distention Extremities: No Pedal Edema Skin: Reports: Warm, Dry, Intact, Rash (Fine pink rash on inside of legs, slept with blanket in between, no warmth or itching)
[2019-03-30] MEDS: Ketorolac 0.5% Ophth Soln 5 ML Bottle EYEBOTH SCH (08:55)
[2019-03-30] MEDS: Formoterol/Mometasone 200-5 MCG 8.8 GM Inhaler IH SCH (08:57)
[2019-03-30] MEDS: prednisoLONE Acetate 1% Ophth Susp 5 ML Bottle EYELF SCH (08:58)
[2019-03-30] MEDS: Baclofen 10 MG Tab PO SCH (08:58)
[2019-03-30] MEDS: Folic Acid 1 MG Tab PO SCH (08:58)
[2019-03-30] MEDS: Magnesium Chloride 64 MG Tab.ER PO SCH (08:58)
[2019-03-30] MEDS: Cholecalciferol (Vitamin D3) 25 MCG Tab PO SCH (08:59)
[2019-03-30] MEDS: prednisoLONE Acetate 1% Ophth Susp 5 ML Bottle EYERT SCH (08:59)
[2019-03-30] MEDS: buPROPion 150 MG Tab.ER PO SCH (09:00)
[2019-03-30] MEDS: Simvastatin 20 MG Tab PO SCH (09:00)
[2019-03-30] MEDS ORDERED: Lisinopril 20 MG Tab PO SCH (09:00)
[2019-03-30 09:04] VITALS: BP 147/81
[2019-03-30] MEDS: Sodium Chloride 0.9% 10 ML Syringe FLUSH PRN (10:05)
[2019-03-30 10:49] VITALS: PULSE 100
[2019-03-30] MEDS ORDERED: Nicotine 21 MG/24 Hr Patch TRDERM SCH (21:00)
== END 2019-03-30 11:45 | disposition home health service (06) | DRG 641 ==
LOC: FB.ED 16:17 → FB.MS 21:45
PROVIDERS: ADMIT Emergency Medicine; ATTEND Family Medicine
DX: E87.1 Hypo-osmolality and hyponatremia (principal); C91.Z2 Other lymphoid leukemia, in relapse; I95.89 Other hypotension; J44.1 Chronic obstructive pulmonary disease with (acute) exacerbation; E86.0 Dehydration; R07.9 Chest pain, unspecified; F17.200 Nicotine dependence, unspecified, uncomplicated; D89.9 Disorder involving the immune mechanism, unspecified; J44.9 Chronic obstructive pulmonary disease, unspecified; H54.7 Unspecified visual loss; H91.90 Unspecified hearing loss, unspecified ear; N40.1 Benign prostatic hyperplasia with lower urinary tract symptoms; N39.498 Other specified urinary incontinence; E78.00 Pure hypercholesterolemia, unspecified; F10.10 Alcohol abuse, uncomplicated; Y90.9 Presence of alcohol in blood, level not specified; I10 Essential (primary) hypertension; C91.10 Chronic lymphocytic leukemia of B-cell type not having achieved remission; G47.30 Sleep apnea, unspecified; R32 Unspecified urinary incontinence; F17.210 Nicotine dependence, cigarettes, uncomplicated; F32.9 Major depressive disorder, single episode, unspecified; F10.20 Alcohol dependence, uncomplicated; E66.9 Obesity, unspecified; Z68.26 Body mass index [BMI] 26.0-26.9, adult; Z88.2 Allergy status to sulfonamides; Z79.899 Other long term (current) drug therapy; Z87.01 Personal history of pneumonia (recurrent); Z90.49 Acquired absence of other specified parts of digestive tract
CPT/HCPCS: 36415; 71045; 71275; 80053; 83735; 84484; 85025; 85610; 85730; 93005; 93010; 96360; 96361; 99284; 99285; J7030; Q9967; 80048; A9270-GY; J1642

== ENCOUNTER 2019-06-13 15:26 | Inpatient (IN) | payer MEDICARE, BC ==
[2019-06-13] MEDS ORDERED: Enoxaparin 40 MG/0.4 ML Syringe SUBCUT SCH (17:00)
[2019-06-13] MEDS ORDERED: Temazepam 15 MG Cap PO PRN (17:34)
[2019-06-13] MEDS: Albuterol/Ipratropium 3.0-0.5 MG/3 ML Neb Soln NEB SCH ×2 (18:38→21:51)
[2019-06-13] MEDS: Potassium Chloride 10 MEQ Tab.ER PO SCH (18:41)
--- NOTE | 2019-06-13 19:25 | HP ---
ADMISSION DATE: 06/13/2019 CHIEF COMPLAINT: Shortness of breath. HISTORY OF PRESENT ILLNESS: Ajay is a 63-year-old man with a history of CLL for the past several years and an abnormal CT scan noted back in September 2018. He came into the clinic today for followup of shortness of breath. He was seen by Dr. Oakes and then recommended for admission to [place] for further investigation and treatment. The patient states he has not had fever, chills, sweats. He has a chronic cough, but nothing comes up. Past recent significant history includes abnormal CT back in September 2018. He had followup needle biopsy, which showed inflammatory changes consistent with histoplasmosis, and subsequently he had an open lung biopsy which again showed no sign of malignancy, but histoplasmosis. In spite of this, his CTs have showed enlarging lesions worrisome for metastatic disease. He has no known primary, but has had lymphadenopathy due to his CLL. He is now dyspneic with activity, but denies any chest pains. 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 MEDICATIONS: 1. Spiriva 1 puff daily. 2. Temazepam 30 mg at bedtime. 3. Tamsulosin 0.4 mg at bedtime. 4. Simvastatin 20 mg daily. 5. Senokot-S 2 daily. 6. Metoclopramide 10 mg t.i.d. p.r.n. 7. Magnesium 64 mg b.i.d. 8. Lisinopril 20 mg daily. 9. Folic acid 1 mg daily. 10.Finasteride 5 mg at bedtime. 11.Vitamin D 3000 units daily. 12.Bupropion 150 mg daily. 13.Symbicort 160 two puffs b.i.d. 14.Baclofen 10 mg b.i.d. ALLERGIES: Sulfa caused a rash. HABITS: Fve-ektz-zmb-day smoker. No alcohol since 2015. 5 to 6 cups coffee per day. FAMILY AND SOCIAL HISTORY: The patient's father at age 73 of hypertension and hyperlipidemia. Mother at age 80, she had CABG. Two brothers have had lung cancer and 1 brother has had a stroke. The patient was in 2009. He was disabled with his West Nile disease back in 2013. 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 He has 3 sons, all in the area, but grandchildren that he is not in contact with. REVIEW OF SYSTEMS: GENERAL: No seizures, syncope, or recent significant weight change. SKIN: Negative for rash. HEENT: No recent change in hearing or vision. He does wear hearing aid on the right side and he recently had cataract surgery that turned out well. CHEST: He has a chronic cough that is nonproductive. No chest pain, but significant dyspnea. ABDOMEN: No abdominal pain, nausea, or diarrhea. MUSCULOSKELETAL: No joint inflammation, swelling, or skin rash. PHYSICAL EXAMINATION: GENERAL: He is alert, comfortable, and a good historian. VITAL SIGNS: Blood pressure 148/80, pulse 92, respirations normal, weight 187, temperature 98.6. SKIN: Anicteric, warm, dry without rash. HEENT: Shows TMs to be clear. Hearing aid was removed for exam. Pupils are equal and reactive. Oropharynx is clear. Mouth dry. LUNGS: Have dense rales at the left mid lung and rales at the right base. He has expiratory wheezes and a frequent dry cough. HEART: Regular without murmur or gallop. ABDOMEN: Normal bowel sounds. Soft and nontender. No masses. No organomegaly. EXTREMITIES: Show no edema. Good pedal pulses. NEUROLOGIC: Reveals mental status intact. Motor exam is symmetric. LABORATORY DATA: White count 6800, hemoglobin 13.1. Sodium 145, potassium 3.4, BUN 19, creatinine 0.9, alkaline phosphatase 135, calcium 8.4. CT of the chest shows multiple lesions that have been large since his previous CT. ASSESSMENT: 1. Enlarging lesions on CT scan of the chest. 2. History of histoplasmosis of chest. 3. History of Pneumocystis pneumonia. 4. CT recently negative for pulmonary embolism. PLAN: He is admitted for further investigation. We will treat him with nebulizer treatments and have his CT reviewed by Oncology. I anticipate a short hospital stay followed by discharge to home. /[id number] RO/MODL
[2019-06-13] MEDS: Baclofen 10 MG Tab PO SCH (20:32)
[2019-06-13] MEDS ORDERED: Tamsulosin 0.4 MG Cap.ER PO SCH (21:00)
[2019-06-13] MEDS ORDERED: Finasteride 5 MG Tab PO SCH (21:00)
[2019-06-13] MEDS ORDERED: Formoterol/Mometasone 200-5 MCG 8.8 GM Inhaler IH SCH (21:00)
[2019-06-14] MEDS: Albuterol/Ipratropium 3.0-0.5 MG/3 ML Neb Soln NEB SCH ×2 (06:00→11:32)
[2019-06-14] MEDS ORDERED: Formoterol/Mometasone 200-5 MCG 8.8 GM Inhaler IH SCH (07:48)
[2019-06-14] MEDS ORDERED: buPROPion 150 MG Tab.ER PO SCH (09:00)
[2019-06-14] MEDS ORDERED: Lisinopril 20 MG Tab PO SCH (09:00)
[2019-06-14] MEDS ORDERED: Folic Acid 1 MG Tab PO SCH (09:00)
[2019-06-14] MEDS: Potassium Chloride 10 MEQ Tab.ER PO SCH (09:37)
[2019-06-14] MEDS: Baclofen 10 MG Tab PO SCH (09:37)
[2019-06-14 09:38] VITALS: BP 137/88
--- NOTE | 2019-06-14 11:44 | CR ---
INDICATION: Dyspnea. CHEST, 2 VIEWS: PA and lateral views of the chest, 06/13/19, were compared with 03/27/19 and 08/16/17. Increased infiltration is noted in the lower lung field on the right with continued pleural effusion on the right, which appears similar in size to the previous study. A portion of the apparent fluid may be scarring or possibly loculated pleural effusion. A Port-a-cath central line is noted in place with its tip at the level of the aortic arch, apparently having been retracted compared with the previous study. The left lung and pleural space appear relatively normal. There does appear to be flattening of the diaphragm leaves suggesting aggressive COPD and/or exacerbation of COPD. Two nodular densities are noted in the area of the middle lobe, which could represent metastatic deposits measuring 22-23 mm for the posterior lesion and a maximum of approximately 16 mm for the more anteriorly located lesion. These were not definitely visualized on the 2018 PA and lateral chest. They had been noted, as well as other lesions, on a CT of the chest dated 06/06/19. IMPRESSION: 1. Progressive infiltration at the right lower lobe with metastatic nodules. The infiltration could be due to pneumonia, although metastatic disease would be a consideration as well as for the pleural thickening at the right lower lung field and laterally extending into the mid-lung field. Nodularity compatible with metastatic disease is again noted. 2. ASHD with minimal cardiomegaly and tortuous calcified aorta. 3. Exacerbation of COPD and/or progression of COPD. MTDD
[2019-06-14] MEDS ORDERED: Tiotropium Inhaler 18 MCG Inhalation Powder Cap Kit of 5 INH SCH (16:00)
[2019-06-14 18:02] VITALS: PULSE 97
--- NOTE | 2019-06-15 06:52 | DISCH ---
DISCHARGE DATE: 06/14/2019 PRIMARY FINAL DIAGNOSIS: Hypoxia secondary to chronic obstructive pulmonary disease with lung masses present and history of histoplasmosis. OTHER DIAGNOSES: 1. BPH. 2. Chronic insomnia. 3. Chronic essential hypertension. 4. Mild hypokalemia. OPERATIONS: None. COMPLICATIONS: None. SUMMARY: Ajay is a 63-year-old man sent over from the clinic in [place] because of dyspnea. He has a history of lung biopsies twice in the past couple of years for lung masses, both showed histoplasmosis. In spite of this, he has been having increasing shortness of breath, and CT has shown grown masses in his lungs, worrisome for metastatic disease. The patient was admitted. CT of the chest showed a large right-sided lung mass. He was treated with nebulizer treatments which gave him symptomatic improvement. He was able to go without oxygen. By the day of discharge, he was anxious to go home. He is discharged in improved condition to take medications as follows. 1. Prednisone 10 mg daily. 2. Simvastatin 20 mg daily. 3. Metoclopramide 10 mg t.i.d. p.r.n. nausea. 4. Mag64 one b.i.d. 5. Vitamin D3 1000 units daily. 6. DuoNeb q.i.d. 7. Spiriva HandiHaler 1 puff daily. 8. Temazepam 30 mg q.h.s. p.r.n. sleep. 9. Tamsulosin 0.4 mg daily. 10.Senna-S 2 daily p.r.n. 11.Lisinopril 20 mg daily. 12.Folic acid 1 mg daily. 13.Finasteride 5 mg daily. 14.Bupropion 150 mg daily. 15.Symbicort 160 two puffs b.i.d. 16.Baclofen 10 mg b.i.d. Ajay is going to have [facility] set up a nebulizer for his DuoNeb at home. I have also placed a referral to Dr. Ng at [place], in [facility] to follow up on these enlarging lung masses. He is to recheck with Dr. Oakes on a p.r.n. basis. /[id number] RO/MODL
--- NOTE | 2019-06-15 08:02 | DISCH ---
DISCHARGE DATE: 06/14/2019 ADDENDUM: Ajay was admitted with dyspnea. He was found to have enlarging lung masses consistent with malignancy. There was no evidence of pneumonia and his previous Pneumocystis pneumonia had resolved. He has underlying COPD and has been receiving DuoNebs treatments in the hospital. We will plan to continue these as an outpatient. /[id number] MERARI/TRACY
== END 2019-06-14 13:25 | disposition home or self-care (01) | DRG 181 ==
LOC: FB.MS 15:26
PROVIDERS: ADMIT Family Medicine; ATTEND Family Medicine
DX: C34.91 Malignant neoplasm of unspecified part of right bronchus or lung (principal); D69.3 Immune thrombocytopenic purpura; J44.9 Chronic obstructive pulmonary disease, unspecified; N40.0 Benign prostatic hyperplasia without lower urinary tract symptoms; G47.00 Insomnia, unspecified; I10 Essential (primary) hypertension; E87.6 Hypokalemia; E11.9 Type 2 diabetes mellitus without complications; F32.9 Major depressive disorder, single episode, unspecified; E78.5 Hyperlipidemia, unspecified; F17.210 Nicotine dependence, cigarettes, uncomplicated; Z79.52 Long term (current) use of systemic steroids; Z79.899 Other long term (current) drug therapy; Z85.6 Personal history of leukemia; Z87.01 Personal history of pneumonia (recurrent); Z88.2 Allergy status to sulfonamides
CPT/HCPCS: 36415; 71046; 80053; 85025; 93005; 94640; A9270-GY; J1650; J7620-GY

== ENCOUNTER 2019-10-30 08:17 | Day surgery (SDC) | payer MEDICARE, BC ==
[2019-10-30] MEDS ORDERED: Propofol 200 MG/20 ML SDV IV ONE (08:18)
[2019-10-30] MEDS ORDERED: Sodium Chloride 0.9% 10 ML Syringe FLUSH PRN (10:15)
[2019-10-30] MEDS ORDERED: Lactated Ringers 1,000 ML IV SCH (10:15)
[2019-10-30] MEDS ORDERED: Albuterol/Ipratropium 3.0-0.5 MG/3 ML Neb Soln NEB ONE (10:31)
--- NOTE | 2019-10-30 10:36 | PCM.SN.2 ---
- Free Text/Narrative Note: Pt examined and chart reviewed. No change to the H+P.
--- NOTE | 2019-10-30 11:19 | PCM.OPNOTE ---
- General Post-Op/Procedure Note Date of Surgery/Procedure: 10/30/19 Operative Procedure(s): c scope with biopsy Findings: sigmoid colon polyp Pre Op Diagnosis: + cologuard Post-Op Diagnosis: sigmoid colon polyp Anesthesia Technique: MAC Primary Surgeon: Charly Harkins Anesthesia Provider: Randa Catalan Pathology: colon polyp Complications: None Condition: Good Free Text/Narrative:: see dictation
[2019-10-30 11:49] VITALS: BP 177/88; PULSE 74
--- NOTE | 2019-10-31 19:38 | OR ---
DATE OF OPERATION: 10/30/2019 SURGEON: Charly Harkins MD PROCEDURE PERFORMED: Colonoscopy with cold forceps biopsy. PREOPERATIVE DIAGNOSIS: Positive Cologuard test. POSTOPERATIVE DIAGNOSIS: Sigmoid colon polyp. INDICATIONS FOR PROCEDURE: This is a 64-year-old white male who was noted to have a positive Cologuard on recent testing, and he was referred for screening colonoscopy. He is completely asymptomatic. DESCRIPTION OF PROCEDURE: After an excellent IV sedation was administered, digital rectal exam was performed. No marked abnormality was noted. Flexible colonoscope was inserted and advanced to the cecum. Prep was excellent. The following findings were noted. Ascending colon, unremarkable. Transverse colon, unremarkable. Descending colon, unremarkable. Sigmoid, small polypoid lesion of approximately 4 mm, biopsied with cold biopsy forceps and sent for permanent. Rectum and anus, unremarkable. The patient tolerated the procedure well, was taken to recovery room. Results will be sent home by letter. /[id number] VIVIANA/TRACY
== END 2019-10-30 12:03 | disposition home or self-care (01) ==
LOC: FB.SDS 08:17
PROVIDERS: ATTEND Surgery
DX: D12.5 Benign neoplasm of sigmoid colon (principal); E78.00 Pure hypercholesterolemia, unspecified; F32.9 Major depressive disorder, single episode, unspecified; J44.9 Chronic obstructive pulmonary disease, unspecified; E11.9 Type 2 diabetes mellitus without complications; Z88.2 Allergy status to sulfonamides; Z11.59 Encounter for screening for other viral diseases; Z79.51 Long term (current) use of inhaled steroids; Z98.890 Other specified postprocedural states
CPT/HCPCS: 00811-QZ; 88305; J2704; J7120; J7620-GY; U0002

== ENCOUNTER 2022-12-18 12:07 | Emergency (ER) | payer MEDICARE, BC, OTHER ==
[2022-12-18] MEDS ORDERED: methylPREDNISolone Sodium Succinate 125 MG/2 ML SDV IVPUSH STA (12:23)
[2022-12-18] MEDS ORDERED: Albuterol/Ipratropium 3.0-0.5 MG/3 ML Neb Soln NEB ONE (12:23)
[2022-12-18] MEDS ORDERED: Ondansetron 4 MG/2 ML SDV IVPUSH ONE (12:23)
[2022-12-18] MEDS ORDERED: Sodium Chloride 0.9% 1,000 ML IV SCH (12:30)
[2022-12-18 12:51] LABS: HEMATOCRIT 42.2 % (38.3-50.1); HEMOGLOBIN 13.4 g/dL (12.9-17.7); MEAN CORPUSCULAR HGB CONC 31.8 g/dL (28.7-35.3); MEAN CORPUSCULAR VOLUME 78.6 fL (80.8-98.7); MEAN PLATELET VOLUME 10.9 fL (6.7-11.0); RED BLOOD CELL COUNT 5.36 x10(6)uL (3.90-5.90); RED CELL DISTRIBUTION WIDTH 16.8 % (12.4-15.0); WHITE BLOOD CELL COUNT,WBC 28.5 x10-3/uL (3.2-10.1)
[2022-12-18 12:57] LABS: PLATELET COUNT,PLT 19 x10(3)uL (117-477)
[2022-12-18] MEDS: Sodium Chloride 0.9% 10 ML Syringe FLUSH PRN ×3 (12:58→15:18)
[2022-12-18 12:59] LABS: BLOOD UREA NITROGEN,BUN 40 mg/dL (7-18); BUN/CREATININE RATIO 21.1 (9-20); CALCIUM 8.8 mg/dL (8.6-10.2); CARBON DIOXIDE,CO2 25 mmol/L (21-32); CHLORIDE,CL 97 mmol/L (100-110); CREATININE 1.9 mg/dL (0.70-1.30); EST CRCL DRUG DOSING (CG) 34.31 mL/min; ESTIMATED GFR 38 mL/min (>60); GLUCOSE RANDOM 136 mg/dL (80-116); POTASSIUM,K 3.9 mmol/L (3.5-5.3); SODIUM,NA 134 mmol/L (135-145)
[2022-12-18 13:03] LABS: A/G RATIO 1.1; ALANINE AMINOTRANSFERASE,ALT 17 U/L (12-36); ALBUMIN 3.3 g/dL (3.2-4.6); ALKALINE PHOSPHATASE 135 IU/L (56-112); ASPARTATE AMNIOTRANSFERASE,AST 12 IU/L (5-25); BILIRUBIN TOTAL 0.8 mg/dL (0.1-1.3); PROTEIN TOTAL,TP 6.4 g/dL (6.0-8.0)
[2022-12-18 13:07] LABS: BLASTS PERCENT MAN 3 % (0-0); LYMPHOCYTES PERCENT MAN 75 % (13-37); MONOCYTES PERCENT MAN 3 % (4-12); SEG NEUTROPHILS PERCENT MAN 19 % (46-82)
[2022-12-18 13:08] LABS: GIANT PLATELETS FEW
[2022-12-18 13:10] LABS: TROPONIN I 28.1 pg/mL (4.0-60.3)
[2022-12-18] MEDS ORDERED: cefTRIAXone 1 GM Vial IVPUSH STA (14:19)
[2022-12-18] MEDS ORDERED: Azithromycin 500 MG in Sodium Chloride 0.9% 250 ML IV ONE (14:19)
[2022-12-18 14:41] LABS: LACTIC ACID 1.6 mmol/L (0.4-2.0)
[2022-12-18 15:12] LABS: CORONAVIRUS COVID-19 NAA NEGATIVE (NEGATIVE); INFLUENZA A NAA NEGATIVE (NEGATIVE); INFLUENZA B NAA NEGATIVE (NEGATIVE)
[2022-12-18 15:45] VITALS: BP 97/49; PULSE 103
== END 2022-12-18 15:51 ==
LOC: FB.ED 12:07
DX: J18.9 Pneumonia, unspecified organism (principal); J90 Pleural effusion, not elsewhere classified; R91.1 Solitary pulmonary nodule; C91.10 Chronic lymphocytic leukemia of B-cell type not having achieved remission; D69.6 Thrombocytopenia, unspecified; E86.0 Dehydration; N17.9 Acute kidney failure, unspecified; F17.210 Nicotine dependence, cigarettes, uncomplicated; E66.9 Obesity, unspecified; E78.00 Pure hypercholesterolemia, unspecified; I10 Essential (primary) hypertension; J44.9 Chronic obstructive pulmonary disease, unspecified; Z88.2 Allergy status to sulfonamides; Z20.822 Contact with and (suspected) exposure to COVID-19
CPT/HCPCS: 0240U; 36415; 71045; 80053; 83605; 83880; 84484; 85025; 86140; 87040; 87077; 87186; 93005; 96361; 96365; 96375; 99285; J0456; J0696; J2405; J2930; J3490; J7030; J7050; J7620

== ENCOUNTER 2023-01-01 06:07 | Emergency (ER) | payer MEDICARE, BC, OTHER ==
[2023-01-01] MEDS ORDERED: Diphtheria,Pertussis(Acell),Tetanus Vaccine 0.5 ML Syringe IM ONE (06:23)
[2023-01-01 06:52] VITALS: BP 131/67; PULSE 62
== END 2023-01-01 06:55 | disposition home or self-care (01) ==
LOC: FB.ED 06:07
DX: S61.011A Laceration without foreign body of right thumb without damage to nail, initial encounter (principal); J44.9 Chronic obstructive pulmonary disease, unspecified; I10 Essential (primary) hypertension; E66.9 Obesity, unspecified; Z68.29 Body mass index [BMI] 29.0-29.9, adult; Z88.2 Allergy status to sulfonamides; Z72.0 Tobacco use; Z23 Encounter for immunization; W26.8XXA Contact with other sharp object(s), not elsewhere classified, initial encounter
CPT/HCPCS: 12001; 90471; 90715; 99282-25; 99283

== ENCOUNTER 2023-05-20 11:40 | Emergency (ER) | payer MEDICARE, BC ==
[2023-05-20 12:01] VITALS: PULSE 74
[2023-05-20] MEDS ORDERED: Sodium Chloride 0.9% 10 ML Syringe FLUSH PRN (12:27)
[2023-05-20 12:35] LABS: HEMATOCRIT 32.7 % (38.3-50.1); MEAN CORPUSCULAR HEMOGLOBIN 26.7 pg (27.0-33.3); MEAN CORPUSCULAR HGB CONC 30.7 g/dL (28.7-35.3); MEAN CORPUSCULAR VOLUME 86.7 fL (80.8-98.7); MEAN PLATELET VOLUME 8.2 fL (6.7-11.0); PLATELET COUNT,PLT 93 x10(3)uL (117-477); RED BLOOD CELL COUNT 3.77 x10(6)uL (3.90-5.90); RED CELL DISTRIBUTION WIDTH 17.3 % (12.4-15.0)
[2023-05-20 12:41] LABS: BLOOD UREA NITROGEN,BUN 15 mg/dL (7-18); BUN/CREATININE RATIO 21.4 (9-20); CALCIUM 8.9 mg/dL (8.6-10.2); CARBON DIOXIDE,CO2 28 mmol/L (21-32); CHLORIDE,CL 101 mmol/L (100-110); CREATININE 0.7 mg/dL (0.70-1.30); ESTIMATED GFR 100 mL/min (>60); GLUCOSE RANDOM 94 mg/dL (80-116); POTASSIUM,K 4.1 mmol/L (3.5-5.3); SODIUM,NA 135 mmol/L (135-145)
[2023-05-20 12:47] LABS: A/G RATIO 1.1; ALANINE AMINOTRANSFERASE,ALT 16 U/L (12-36); ALBUMIN 3.2 g/dL (3.2-4.6); ALKALINE PHOSPHATASE 125 IU/L (56-112); ASPARTATE AMNIOTRANSFERASE,AST 10 IU/L (5-25); BILIRUBIN TOTAL 0.3 mg/dL (0.1-1.3)
[2023-05-20 12:51] LABS: WHITE BLOOD CELL COUNT,WBC 66.6 x10-3/uL (3.2-10.1)
[2023-05-20 13:17] LABS: PROTHROMBIN TIME 10.3 sec (9.0-11.1)
[2023-05-20 13:31] LABS: LYMPHOCYTES PERCENT MAN 70 % (13-37); MONOCYTES PERCENT MAN 7 % (4-12); SEG NEUTROPHILS PERCENT MAN 23 % (46-82)
[2023-05-20 13:43] VITALS: BP 115/50
== END 2023-05-20 13:46 | disposition home or self-care (01) ==
LOC: FB.ED 11:40
DX: K92.1 Melena (principal); I10 Essential (primary) hypertension; E66.9 Obesity, unspecified; F17.210 Nicotine dependence, cigarettes, uncomplicated; Z90.49 Acquired absence of other specified parts of digestive tract; Z88.2 Allergy status to sulfonamides
CPT/HCPCS: 80053; 82272; 85025; 85610; 85730; 86140; 99283; J1642; J3490